=== PATIENT | female | born 1950 | race Caucasian/White ===

== ENCOUNTER → 2020-04-26 09:32 | Outpatient (BNVA) | payer MEDICARE, SELFPAY | PROVIDERS: Family Provider Family Medicine; PCP Family Medicine; Visit Provider Family Medicine | DX: I10 Essential (primary) hypertension (principal) | CPT/HCPCS: 80048; 85025 ==

== ENCOUNTER 2021-01-14 13:23 | Emergency (ER) | payer MEDICARE, SELFPAY ==
[2021-01-14 13:48] VITALS: BP 137/82; PULSE 90; RESP 16; TEMP 37.3; O2SAT 96; BMI 27.4
--- NOTE | 2021-01-14 13:50 | USCV_ITS ---
Isabel Auguste Age: 70 Gender: F : 1950 Exam Date: 01/14/2021 14:15 Ordering Phys: Dash Allison MD Technologist: Marce Rios Exam Location: [facility] Indication: PAIN RT CALF POST LAWN MOWING HISTORY: Pain rt calf below knee. PROCEDURES: The venous duplex Doppler examination of both lower extremities was performed in the standard fashion. The following venous structures were evaluated: common femoral vein, profunda vein, proximal portion of the greater saphenous vein, superficial femoral vein, and the popliteal vein. In addition, the posterior tibial and peroneal trunk were evaluated. Serial compression, augmentation maneuvers, and spectral Doppler flow evaluation were performed. FINDINGS: Normal 2-D Doppler and augmentation and compressibility throughout the lower extremity venous structures. Additional imaging through the proximal calf veins also reveals no thrombus. Limited evaluation of the greater saphenous vein is patent with no thrombus. CONCLUSIONS No DVT bilateral lower extremities. Dr. Joy Azevedo DO (Electronically Signed) Final Date: 14 January 2021 14:42 S
[2021-01-14 14:59] LABS: Basophils # 0.1 10^3/uL (0.0-0.1); Basophils % 0.9 %; Eosinophils # 0.1 10^3/uL (0.0-0.8); Eosinophils % 1.3 %; Hematocrit 44.2 % (37.0-47.0); Hemoglobin 14.7 g/dL (11.5-15.3); Lymphocytes # 1.6 10^3/uL (0.8-4.8); Mean Corpuscular HGB Conc 33.3 g/dL (30.0-36.0); Mean Corpuscular Hemoglobin 29.6 pg (28.0-34.0); Mean Corpuscular Volume 88.9 fL (81-99); Mean Platelet Volume 9.5 fL (7.4-10.4); Monocytes # 0.6 10^3/uL (0.2-0.9); Monocytes % 5.6 %; Neutrophils # 7.78 10^3/uL (1.8-7.7); Neutrophils % 75.8 %; Nucleated Red Blood Cells % 0 %; Platelet Count 410 10^3/cmm (130-400); Red Blood Count 4.97 10^6/uL (4.1-5.3); Red Cell Distribution Width 12.3 % (12.1-15.1); White Blood Count 10.3 10^3/uL (4.0-10.0)
[2021-01-14 15:24] LABS: Alanine Aminotransferase 13 U/L (0-33); Albumin Level 4.6 g/dL (3.5-5.2); Alkaline Phosphatase 92 IU/L (35-105); Anion Gap 17.3 (5-19); Aspartate Amino Transferase 19 U/L (0-32); Blood Urea Nitrogen 24 mg/dL (8-23); Calcium 9.7 mg/dL (8.5-10.5); Carbon Dioxide 28 mmol/L (22-29); Chloride 97 mmol/L (98-107); Globulin 3.3 g/dL (1.3-4.6); Glomerular Filtration Rate 54.8 mL/min (90-130); Glucose 121 mg/dL (65-115); Osmolality Calculated 293 mOsm/kg (285-295); Potassium 3.3 mmol/L (3.5-5.1); Sodium 139 mmol/L (136-145); Total Bilirubin 0.4 mg/dL (0.15-1.2); Total Protein 7.9 g/dL (6.6-8.7)
[2021-01-14 15:28] LABS: INR 0.95 (0.8-1.2)
[2021-01-14 15:29] LABS: Partial Thromboplastin Time 24.5 SECONDS (23.9-36.7)
[2021-01-14 15:31] LABS: D Dimer 0.36 ug/mIFEU (0-0.59)
[2021-01-14 17:00] VITALS: BP 153/94; PULSE 79; RESP 18; O2SAT 99
--- NOTE | 2021-01-14 17:20 | ED_ITS ---
HPI - Extremity Problem General: Chief complaint: Extremity Problem,Nontraumatic Stated complaint: POSS BLOOD CLOT IN RIGHT LEG Time Seen by Provider: 01/14/21 17:15 History of Present Illness: HPI Narrative: This patient is a 70-year-old female presents to the emergency department complaint of right leg pain. Patient was seen here by urgent care to rule out DVT. Patient states she started hurting a few days ago after getting off a lawnmower states she felt pain all the way down to her right calf. Patient states it got better over time but Sunday after sabianist unable to ambulate with her leg. Patient has a bit leg pain in a 90 degree angle is reluctant to straighten it. MD Complaint: extremity pain Associated symptoms: Deny chest pain, fever(s) or rash Review of Systems General: Reports: 10 or more systems reviewed and unremarkable except in HPI and below Const: Denies: fever(s), chills, body aches or fatigue Eyes: Denies: change in vision or blurry vision ENMT: Denies: throat pain, hoarseness or mouth pain Card: Denies: chest pain, palpitations, irregular heart rhythm, edema, swelling of feet/ankles or lightheadedness Resp: Denies: dyspnea, productive cough, non-productive cough, wheezing or pain on inspiration GI: Denies: abdominal pain, nausea or vomiting : Denies: flank pain, difficulty voiding, dysuria, urinary frequency, urinary urgency or urinary hesitancy Musc: Reports: extremity pain; Denies: neck pain, back pain, extremity swelling, joint pain, joint swelling, joint redness, joint warmth or limited range of motion Skin/Breast: Denies: rash, pruritus, erythema or skin tenderness Neuro: Denies: headache(s), numbness in extremities or weakness in extremities Psych: Denies: anxiety or depression PFS ED PFSH: Medical History Hypertension Social History Smoking and tobacco status: never smoked Alcohol intake: never Physical Exam Const: COMMON NORMALS: no acute distress, average body habitus, patient oriented x3, no limitations, healthy appearing, alert and well nourished HENMT: COMMON NORMALS: normocephalic, atraumatic, hearing grossly normal bilaterally, external ears normal, EAC's normal, TM's normal bilaterally, Normal external nose present, Normal nasal mucous membranes and turbinates present, moist oral mucous membranes, oropharynx normal, dentition normal and gingiva normal HEAD & SCALP: normocephalic and atraumatic NOSE: Normal external nose present and Normal nasal mucous membranes and turbinates present EXTERNAL EAR: Yes external ears normal EXTERNAL AUDITORY CANAL: EAC's normal TYMPANIC MEMBRANE: TM's normal bilaterally Neck/C-Spine: COMMON NORMALS: full ROM, no lymphadenopathy, supple, no meningeal signs, no JVD, Thyroid normal and No carotid bruits THYROID: T hyroid normal Chest: COMMONS NORMALS: normal inspection of the chest, normal palpation of entire chest wall, normal inspection of the breasts and normal palpation of the breasts Breast/axilla inspection: Yes normal inspection of the breasts BREAST/AXILLA PALPATION: Yes normal palpation of the breasts Resp: COMMON NORMALS: normal respiratory effort, No retractions, No use of accessory muscles, clear to auscultation bilaterally and percussion normal AUSCULTATION: clear to auscultation bilaterally PERCUSSION: percussion normal Cardio: COMMON NORMALS: no JVD, regular rate, regular rhythm, S1 normal heart sound present, S2 normal heart sound present, No gallops present (Cardio), No clicks present (Cardio), No murmurs present (Cardio), No rub (Cardio) and Peripheral pulses 2+ throughout RATE: regular rate RHYTHM: regular rhythm HEART SOUNDS: S1 normal heart sound present and S2 normal heart sound present PERIPHERAL PULSES: Peripheral pulses 2+ throughout GI: COMMON NORMALS: Normal to inspection, nondistended, normoactive bowel sounds present, Soft to palpation, non-tender, No hepatosplenomegaly present, no masses and no bruits PALPATION: Yes Soft to palpation and Yes No hepatosplenomegaly present Back/Pelvis: COMMON NORMALS: thoracic and lumbar spine normal to inspection, no thoracic nor lumbar tenderness, thoraco-lumbar ROM normal and straight leg raise negative bilaterally Extremity: COMMON NORMALS: normal to inspection, full ROM, capillary refill normal, no joint enlargement, no clubbing, cyanosis or edema, no calf tenderness and no pedal edema GENERAL: Yes calf tenderness (none) RIGHT LOWER EXTREMITY: Yes upper leg (Painful in Muscle refuses to Straighten leg) Right upper leg: Yes palpation Neuro: COMMON NORMALS: patient oriented x3 SENSORIUM/ORIENTATION: Yes alert MENINGEAL SIGNS: Yes no meningeal signs Course ED course: Negative evaluation in the emergency room for any acute findings. Ultrasound negative. Was able to straighten right leg with patient assistance. Patient has significant tightness into the medial side of the quadricep muscle. Pain to palpation. Patient be placed in a knee immobilizer. Patient should rest ice and heat. Keep elevated. Follow-up with orthopedics Dr. Theodore in 2 to 3 days if not improved patient states understanding Vital Signs: Vital signs: Vital Signs Temperature 99.1 F 01/14/21 13:48 Pulse Rate 90 01/14/21 13:48 Respiratory Rate 16 01/14/21 13:48 Blood Pressure 137/82 01/14/21 13:48 Pulse Oximetry 96 01/14/21 13:48 MDM - Extremity (Nontraumatic) MDM Narrative: Medical decision making narrative: Negative evaluation in the emergency room for any acute findings. Ultrasound negative. Was able to straighten right leg with patient assistance. Patient has significant tightness into the medial side of the quadricep muscle. Pain to palpation. Patient be placed in a knee immobilizer. Patient should rest ice and heat. Keep elevated. Follow-up with orthopedics Dr. Theodore in 2 to 3 days if not improved patient states understanding Medical Records: Attestation: I reviewed the patient's medical records. Lab Data: Attestation: I reviewed the patient's lab results. Labs: Lab Results 01/14/21 01/14/21 01/14/21 Range/Units 14:54 14:54 14:54 WBC 10.3 H (4.0-10.0) 10^3/ uL RBC 4.97 (4.1-5.3) 10^6/u L Hgb 14.7 (11.5-15.3) g/dL Hct 44.2 (37.0-47.0) % MCV 88.9 (81-99) fL MCH 29.6 (28.0-34.0) pg MCHC 33.3 (30.0-36.0) g/dL RDW 12.3 (12.1-15.1) % Plt Count 410 H (130-400) 10^3/c mm MPV 9.5 (7.4-10.4) fL Neut % (Auto) 75.8 % Lymph % (Auto) 16.0 % Hamblen % (Auto) 5.6 % Eos % (Auto) 1.3 % Baso % (Auto) 0.9 % Neut # (Auto) 7.78 H (1.8-7.7) 10^3/u L Lymph # (Auto) 1.6 (0.8-4.8) 10^3/u L Hamblen # (Auto) 0.6 (0.2-0.9) 10^3/u L Eos # (Auto) 0.1 (0.0-0.8) 10^3/u L Baso # (Auto) 0.1 (0.0-0.1) 10^3/u L Nucleated RBC % (a uto) 0 % Nucleated RBCs # 0.0 /100WBC PT 13.00 (12.1-14.9) SECO NDS INR 0.95 (0.8-1.2) APTT 24.5 (23.9-36.7) SECO NDS D-Dimer 0.36 (0-0.59) ug/mIFE U Sodium 139 (136-145) mmol/L Potassium 3.3 L (3.5-5.1) mmol/L Chloride 97 L (98-107) mmol/L Carbon Dioxide 28 (22-29) mmol/L Anion Gap 17.3 (5-19) BUN 24 H (8-23) mg/dL Creatinine 1.0 H (0.5-0.9) mg/dL GFR Calculation 54.8 L (90-130) mL/min Glucose 121 H (65-115) mg/dL Calculated Osmolal ity 293 (285-295) mOsm/k g Calcium 9.7 (8.5-10.5) mg/dL Total Bilirubin 0.4 (0.15-1.2) mg/dL AST 19 (0-32) U/L ALT 13 (0-33) U/L Alkaline Phosphata se 92 (35-105) IU/L Total Protein 7.9 (6.6-8.7) g/dL Albumin 4.6 (3.5-5.2) g/dL Globulin 3.3 (1.3-4.6) g/dL Imaging Data^: US Vascular: Attestation: I personally reviewed and interpreted this imaging study as follows: Radiologist's impression: FINDINGS: Normal 2-D Doppler and augmentation and compressibility throughout the lower extremity venous structures. Additional imaging through the proximal calf veins also reveals no thrombus. Limited evaluation of the greater saphenous vein is patent with no thrombus. CONCLUSIONS No DVT bilateral lower extremities. Discharge Plan Discharge Patient Disposition: Home Clinical Impression: Hamstring muscle strain Condition: Stable Prescriptions: New hydrocodone-acetaminophen 5-325 mg tablet 1 tab PO Q6H PRN (Reason: pain) Qty: 7 RF: 0 diclofenac sodium 75 mg tablet,delayed release (DR/EC) 75 mg PO BID PRN (Reason: pain) Qty: 20 RF: 0 No Action hydrochlorothiazide 25 mg tablet 25 mg PO DAILY Qty: 90 RF: 1 multivitamin Capsule 1 cap PO DAILY Qty: 90 RF: 1 amlodipine 2.5 mg tablet 2.5 mg PO BID Qty: 180 RF: 1 lisinopril 20 mg tablet 20 mg PO BID Qty: 180 RF: 1 loratadine 10 mg tablet 10 mg PO DAILY PRN (Reason: Allergy Symptoms) RF: 0 Discharge Orders: Discharge ED (Routine); Ordered 01/14/21 Ordered By: Dash Allison Referrals: Rakesh Khoury MD [Primary Care Provider] - Linh Rowley MD [Physician] - Discharge Diet: Advance as tolerated Discharge Activity: Increase activity as tolerated Patient Instructions: Opioid Safety Activity Restrictions/Additional Instructions: Rest ice elevate alternate ice with heat. Stretching exercises as instructed. Use knee immobilizer for straining of leg. Take medications as instructed. Coding Level of Care Code ED Handkerchief Sample Clerk for Abimbola Shah
[2021-01-14] MEDS: HYDROcodone-acetaminophen 5-325 mg Tablet 1 TAB PO (17:38)
[2021-01-14 17:59] VITALS: BP 161/86; PULSE 75; RESP 18; O2SAT 98
== END 2021-01-14 18:01 | disposition home or self-care (01) ==
PROVIDERS: Emergency Provider Emergency Medicine; PCP Family Medicine
DX: S76.311A Strain of muscle, fascia and tendon of the posterior muscle group at thigh level, right thigh, initial encounter (principal); X58.XXXA Exposure to other specified factors, initial encounter; I10 Essential (primary) hypertension; M79.604 Pain in right leg
CPT/HCPCS: 29530; 36415; 80053; 85025; 85378; 85610; 85730; 93970; 99283

== ENCOUNTER → 2022-04-17 16:12 | Outpatient (BNVA) | payer MEDICARE, SELFPAY | PROVIDERS: PCP Family Medicine; Visit Provider Family Medicine | DX: I10 Essential (primary) hypertension (principal); Z00.00 Encounter for general adult medical examination without abnormal findings; Z23 Encounter for immunization | CPT/HCPCS: 80053; 85025 ==

== ENCOUNTER → 2023-04-23 15:37 | Outpatient (BNVA) | payer MEDICARE, SELFPAY | PROVIDERS: PCP Family Medicine; Visit Provider Family Medicine | DX: I10 Essential (primary) hypertension (principal) | CPT/HCPCS: 80053; 85025 ==

== ENCOUNTER → 2023-08-07 10:15 | Outpatient (BNVA) | payer MEDICARE, SELFPAY | PROVIDERS: PCP Family Medicine; Visit Provider Family Medicine | DX: I10 Essential (primary) hypertension (principal); T78.40XA Allergy, unspecified, initial encounter | CPT/HCPCS: 80053; 85025 ==

== ENCOUNTER 2023-08-28 09:24 | Outpatient (CLI) | payer MEDICARE, SELFPAY ==
--- NOTE | 2023-08-28 09:30 | XRR_ITS ---
PROCEDURE INFORMATION: Exam: XR Chest Exam date and time: 08/28/2023 9:51 AM Age: 72 years old Clinical indication: Wheezing; Patient HX: Upper respiratory infection, chest congestion for 1 month, allergic reaction for 1 month; Additional info: Persistant wheezing/dyspnea p antibiotics TECHNIQUE: Imaging protocol: Radiologic exam of the chest. Views: 2 views. COMPARISON: No relevant prior studies available. FINDINGS: Lungs: There is an opacity in the left infrahilar region thought to project in the lingula.. This may be a patchy infiltrate or atelectasis however mass in this location can not be excluded. Right lung is clear There is a calcified granuloma in the medial posterior left upper lobe. Pleural spaces: Unremarkable. No pleural effusion. No pneumothorax. Heart/Mediastinum: The heart size is within normal limits. There are calcified hilar and mediastinal lymph nodes. Bones/joints: There are degenerative changes and kyphosis in the thoracic spine. There is thoracolumbar scoliosis. XR/XR chest 2V* [id number] IMPRESSION: 1. Opacity left lung base. Further evaluation recommended with chest CT 2. Degenerative changes and kyphoscoliosis spine. 3. Prior granulomatous disease
== END 2023-08-28 09:25 | disposition home or self-care (01) ==
LOC: RAD 09:25
PROVIDERS: PCP Family Medicine; Visit Provider Family Medicine
DX: J20.9 Acute bronchitis, unspecified (principal); J21.9 Acute bronchiolitis, unspecified
CPT/HCPCS: 71046; 86710; 87420; 87635

== ENCOUNTER 2023-09-03 12:49 | Outpatient (CLI) | payer MEDICARE, SELFPAY ==
--- NOTE | 2023-09-03 13:00 | CTR_ITS ---
PROCEDURE INFORMATION: Exam: CT Chest Without Contrast; Diagnostic Exam date and time: 09/03/2023 1:04 PM Age: 72 years old Clinical indication: Other: Cough; Patient HX: Acute bronchitis x 1 month, no issues in abdomen; Additional info: J20.9 - acute bronchitis, unspecified, request performed in next 24 to 48 hours TECHNIQUE: Imaging protocol: Diagnostic computed tomography of the chest without contrast. Radiation optimization: All CT scans at this facility use at least one of these dose optimization techniques: automated exposure control; mA and/or kV adjustment per patient size (includes targeted exams where dose is matched to clinical indication); or iterative reconstruction. COMPARISON: CR XR chest 2V* [id number] 08/28/2023 9:51 AM RADIATION DOSE METRICS: Total DLP (mGy-cm): 395.43 FINDINGS: Lungs: Left upper lobe granuloma. No focal consolidation. Bibasilar bronchial wall thickening and mucous plugging. Pleural spaces: Unremarkable. No pneumothorax. No pleural effusion. Heart: Unremarkable. No cardiomegaly. No pericardial effusion. Coronary arteries: Severe coronary artery calcification. Lymph nodes: Calcified left hilar lymph node, likely sequela of prior granulomatous disease. Vasculature: Unremarkable. No aortic aneurysm. Bones/joints: Moderate degenerative changes of the spine. Soft tissues: Unremarkable. PROCEDURE INFORMATION: Exam: CT Abdomen Without Contrast Exam date and time: 09/03/2023 1:04 PM Age: 72 years old Clinical indication: Other: Cough; Patient HX: Acute bronchitis x 1 month, no issues in abdomen; Additional info: J20.9 - acute bronchitis, unspecified, request performed in next 24 to 48 hours TECHNIQUE: Imaging protocol: Computed tomography of the abdomen without contrast. Radiation optimization: All CT scans at this facility use at least one of these dose optimization techniques: automated exposure control; mA and/or kV adjustment per patient size (includes targeted exams where dose is matched to clinical indication); or iterative reconstruction. COMPARISON: CR XR chest 2V* [id number] 08/28/2023 9:51 AM RADIATION DOSE METRICS: Total DLP (mGy-cm): 395.43 FINDINGS: Liver: No mass. Gallbladder and bile ducts: No calcified stones. No ductal dilation. Pancreas: No ductal dilation. Spleen: Multifocal splenic calcifications, likely sequela of prior granulomatous disease. Adrenal glands: Unremarkable. Kidneys and ureters: No hydronephrosis. Stomach and bowel: Visualized stomach and bowel are unremarkable. No obstruction. No mucosal thickening. Intraperitoneal space: Unremarkable. No free air. No significant fluid collection. Vasculature: Moderate atherosclerotic calcifications. Lymph nodes: Unremarkable. No enlarged lymph nodes. Bones/joints: Moderate degenerative changes of the spine. Soft tissues: Unremarkable. CT/CT chest abd [id number] IMPRESSION: Bibasilar bronchial wall thickening and mucous plugging, suggestive of bronchitis. No focal consolidation. IMPRESSION: No acute findings in the abdomen.
== END 2023-09-03 12:50 | disposition home or self-care (01) ==
LOC: RAD 12:50
PROVIDERS: PCP Family Medicine; Visit Provider Family Medicine
DX: J20.9 Acute bronchitis, unspecified (principal); J21.9 Acute bronchiolitis, unspecified; R91.8 Other nonspecific abnormal finding of lung field; J84.89 Other specified interstitial pulmonary diseases; D71 Functional disorders of polymorphonuclear neutrophils
CPT/HCPCS: 71250; 74150; 80053; 85025; 85651; 86140

== ENCOUNTER → 2023-10-01 14:14 | Outpatient (BNVA) | payer MEDICARE, SELFPAY | PROVIDERS: PCP Family Medicine; Visit Provider Family Medicine | DX: G70.9 Myoneural disorder, unspecified (principal); I10 Essential (primary) hypertension | CPT/HCPCS: 80053; 82085; 82550; 82607; 82652; 82746; 83735; 85025; 86140; 86160; 86162; 86235; 86255; 86376; 86431 ==

== ENCOUNTER → 2023-10-02 07:13 | Outpatient (BNVA) | payer MEDICARE, SELFPAY | PROVIDERS: PCP Family Medicine; Visit Provider Psychiatry & Neurology Neurology | DX: M33.13 Other dermatomyositis without myopathy (principal); G62.9 Polyneuropathy, unspecified; E87.6 Hypokalemia; I10 Essential (primary) hypertension | CPT/HCPCS: 99203 ==

== ENCOUNTER 2023-10-02 10:16 | Inpatient (IN) | payer MEDICARE, SELFPAY ==
[2023-10-02] VITALS (8 sets, daily range): BP systolic 137–173; BP diastolic 74–82; PULSE 82–91; RESP 16–20; TEMP 36.1–36.8; O2SAT 91–98; BMI 29.5
--- NOTE | 2023-10-02 10:26 | ECG_ITS ---
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 Measurements Intervals [place] Rate: 82 P: 0 NV: 0 QRS: -3 QRSD: 102 T: -1 QT: 393 QTc: 461 Interpretive Statements ATRIAL FIBRILLATION MINIMAL VOLTAGE CRITERIA FOR LVH, CONSIDER NORMAL VARIANT [MEETS CRITERIA IN ONE OF: R(aVL), S(V1), R(V5), R(V5/V6)+S(V1)] NONSPECIFIC ST & T-WAVE ABNORMALITY ABNORMAL RHYTHM ECG No previous ECG available for comparison Electronically Signed On 10-02-2023 11:45:47 CDT by Solomon Adams M.D. [id number]
--- NOTE | 2023-10-02 10:26 | XR_ITS ---
WS: [id number] Examination: XR chest 1V portable [id number] Reason for Exam: dyspnea Date: October 02, 2023 Comparison: August 28, 2023 Findings: The cardiomediastinal silhouette is not enlarged on this rotated film There is no pulmonary edema or pleural effusion. There is no dense consolidation. Impression: No acute lung process is identified.
[2023-10-02] MEDS: potassium chloride ER 20 mEq Tablet 40 MEQ PO (10:51)
[2023-10-02] MEDS: heparin 5,000 unit/mL INJ 1 mL 5000 UNIT SUBCUT ×2 (10:52→22:22)
--- NOTE | 2023-10-02 11:00 | USCV_ITS ---
Mild Isabel Auguste Age: 72 Gender: F : 1950 Exam Date: 10/02/2023 12:13 Ordering Phys: Constantin Boswell MD Technologist: Exam Location: [facility] Indication: weakness elevated ck BP: 123 / 73 HR: 83 Rhythm: Sinus Technical Quality: Adequate MEASUREMENTS (Male / Female) Normal Values 2D ECHO LVOT Diameter 2.1 cm LV Ejection Fraction MOD 2C 62.5 % LV Ejection Fraction 2C AL 62.6 % LA Diameter 3.8 cm M-MODE LA Ao Ratio MM 1.3 MV E Point Septal Separation 1.4 cm AV Cusp Separation MM 2.5 cm DOPPLER AV Peak Velocity 157.0 cm/s LVOT Peak Velocity 113.0 cm/s AV Area Cont Eq vti 2.6 cm squared AV Area Cont Eq pk 2.4 cm squared MV Peak Velocity 152.0 cm/s MV Area PHT 3.6 cm squared Mitral E to A Ratio 0.5 TR Peak Velocity 186.5 cm/s TR Peak Gradient 13.9 mmHg TR Mean Velocity 92.0 cm/s TR Mean Gradient 4.0 mmHg TR Velocity Time Integral 30.5 cm TV Peak E Velocity 104.0 cm/s Right Atrial Pressure 3.0 mmHg Pulmonary Artery Systolic Pressu 16.9 mmHg PV Peak Velocity 117.0 cm/s FINDINGS Left Ventricle Left ventricle is normal in size. LV systolic function is normal with EF of 60 to 65%. No regional wall motion abnormalities are seen. Grade 1 diastolic dysfunction Right Ventricle Normal in size and function Right Atrium Normal in size Left Atrium normal in size Mitral Valve Structurally normal mitral valve. Trace mitral regurgitation. Aortic Valve Aortic valve is thickened. No significant stenosis or regurgitation. Tricuspid Valve Mild tricuspid regurgitaiton. Insufficient TR jet to calculate RVSP Pulmonic Valve Not well visualized Pericardium Normal Aorta Normal in size IVC Appears to be normal CONCLUSIONS LV systolic function is normal with EF of 60-65% Grade 1 diastolic dysfunction Trace mitral regurgitation Mild tricuspid regurgitation No comparison studies are available. Solomon Adams MD (Electronically Signed) Final Date: 02 October 2023 15:41 S
--- NOTE | 2023-10-02 11:04 | P.HP_ITS ---
Providers/Chief Complaint 2 Admitting Physician: Constantin Boswell MD Primary Care Provider: Rakesh Khoury MD Chief Complaint: Generalized weakness History of Present Illness Isabel Auguste is a 72 year old female presenting from neurology clinic with severe weakness progressive over the last 4 months associated with rash, and some wheezing. She reports such severe weakness now that she can only ambulate a few steps, and has some difficulty even sitting up in bed for me. She reports she was diagnosed with pneumonia at some point and received some antibiotics as well as a short course of steroids. This did not seem to change her overall disease course. She denies any fevers, chest pain, vomiting, difficulty swallowing, shortness of breath, blood in stool, prior history of autoimmune disease. She had significant muscle aching, mainly proximally. She can still play the piano. Review of Systems 2 General: Reports: 10 or more systems reviewed and unremarkable except in HPI and below Card: Denies: chest pain Resp: Reports: wheezing; Denies: dyspnea GI: Denies: abdominal pain, nausea, vomiting or hematochezia Medications/Allergies Home Medications Medication Instructions Recorded Confirmed Last Taken Type multivitamin 1 cap PO DAILY #90 caps 04/29/20 10/02/23 01/14/21 Rx hydrochlorothiazide 25 mg tablet See Rx Instructions .Route 04/23/23 10/02/23 Unknown Rx .COMPLEX #90 tabs albuterol sulfate 90 mcg/actuation 2 puff inhalation Q6H PRN 08/28/23 10/02/23 Unknown Rx aerosol inhaler shortness of breath or wheezing #8.5 grams benzonatate 200 mg capsule 200 mg PO BID PRN cough #20 caps 08/28/23 10/02/23 Unknown Rx triamcinolone acetonide 0.1 % 1 applic topical TID PRN itching 09/10/23 10/02/23 Unknown Rx topical cream rash #80 grams amlodipine 5 mg tablet 5 mg PO BID #180 tabs 10/01/23 10/02/23 Unknown Rx Allergies Allergy/AdvReac Type Severity Reaction Status Date / Time No Known Allergies Allergy Verified 10/02/23 10:13 PFSH Acute 2 PFSH: Medical History (Updated 10/02/23 @ 11:56 by Constantin Boswell MD) GERD (gastroesophageal reflux disease) Hypertension Surgical History (Updated 10/02/23 @ 11:56 by Constantin Boswell MD) History of tubal ligation Social History Smoking and tobacco/nicotine status: never used tobacco/nicotine Alcohol intake: never Substance/Drug Use: never Other PFSH information: Supplemental [facility] Information: Reports family history of asthma Physical Exam 2 Narrative: General exam no distress, but obviously weak HEENT: Atraumatic and normocephalic. Oropharynx is clear. Neck is supple no lymphadenopathy thyromegaly Cardiovascular regular rate and rhythm without murmur Lungs a few faint wheezes Abdomen is soft nontender with positive bowel sounds. No obvious organomegaly exam is deferred Extremities no cyanosis clubbing edema, cap refill brisk Skin there is evidence of erythematous papules over her MCPs and PIPs, consistent with Gottron's papules. Some are also present on her elbows and knees, mainly her patella. Rash is also present on the face, centering mainly around the eyes consistent with heliotrope rash. Data 10/02/23 10:54 10/02/23 10:54 Other Labs: ESR 18 LFTs demonstrate a elevated AST at 270 and ALT of 103. Bilirubin and alk phos are normal Troponin is 306. Previous CK is 5485, repeat pending Aldolase previously ordered is pending as well as autoimmune workup A TSH is 2.19 Calcium, albumin normal Chest x-ray no infiltrate, reviewed by me CT chest and abdomen done September 02 demonstrated no obvious malignancy EKG done today demonstrates sinus rhythm, left axis deviation. Nonspecific ST-T wave changes are noted. I reviewed this personally. 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 Autoimmune workup has been initiated Check urinalysis Check echocardiogram Check hepatitis panel Will ultimately need PFTs as she may have a component of interstitial lung disease Muscle and skin biopsy ordered Initiate Solu-Medrol 500 mg IV every 12 hours. When clinical response is achieved will reduce to 1 mg/kg daily Consider IVIG if does not improve Neurology consult appreciated (2) Hypokalemia: Supplement potassium IV and p.o. Recheck tomorrow Hold hydrochlorothiazide Plan Wheezing. DuoNeb every 6 hours. Add budesonide. Hypertension. Monitor blood pressures. Restart Norvasc as needed Full code Heparin for DVT prophylaxis Attestations 2 Medical Necessity Statement*: Will need greater than 2 midnight stay secondary to severe weakness with inability to ambulate in this patient with severe initial presentation of polymyositis/dermatomyositis with need for IV steroids and possibly IVIG. Diagnoses Dermatomyositis M33.13 Hypokalemia E87.6 Time Spent (min) 64
[2023-10-02 11:09] LABS: Basophils # 0.1 10^3/uL (0.0-0.1); Basophils % 0.7 %; Eosinophils # 0.1 10^3/uL (0.0-0.8); Eosinophils % 0.7 %; Hematocrit 40.3 % (36-47); Mean Corpuscular HGB Conc 34.7 g/dL (30-55); Mean Corpuscular Hemoglobin 29.7 pg (27-33); Mean Corpuscular Volume 85.6 fl (85-98); Mean Platelet Volume 9.3 fL (7.4-10.4); Monocytes # 0.9 10^3/uL (0.2-0.9); Monocytes % 9.5 %; Neutrophils # 7.18 10^3/uL (1.8-7.7); Neutrophils % 77.8 %; Nucleated Red Blood Cells % 0 %; Platelet Count 342 10^3/cmm (157-399); Red Blood Count 4.71 10^6/uL (3.85-5.65); Red Cell Distribution Width 12.9 % (12.1-15.1); White Blood Count 9.22 10^3/uL (3.29-11.43)
[2023-10-02 11:18] LABS: Erythrocyte Sedimentation Rate 18 mm/hr (0-15)
[2023-10-02 11:28] LABS: Troponin T (5th) Once 306 ng/L (0-10)
[2023-10-02 11:33] LABS: Alanine Aminotransferase 103 U/L (0-33); Albumin Level 3.5 g/dL (3.5-5.2); Alkaline Phosphatase 87 U/L (35-105); Anion Gap 17.8 (5-19); Aspartate Amino Transferase 270 U/L (0-32); Blood Urea Nitrogen 19 mg/dL (8-23); C Reactive Protein 3.8 mg/L (0.0-4.9); Calcium 8.8 mg/dL (8.5-10.5); Carbon Dioxide 26 mmol/L (22-29); Chloride 97 mmol/L (98-107); Creatinine Clr Calc Pharmacy 54.8867; Glucose 105 mg/dL (65-115); Magnesium 1.7 mg/dL (1.7-2.3); Osmolality Calculated 289 mOsm/kg (285-295); Phosphorus 3.4 mg/dL (2.5-4.5); Sodium 138 mmol/L (136-145); Thyroid Stimulating Hormone 2.19 uIU/mL (0.27-4.20); Total Bilirubin 0.5 mg/dL (0.15-1.2); Total Protein 6.5 g/dL (6.6-8.7)
[2023-10-02 11:36] LABS: Potassium 2.8 mmol/L (3.5-5.1)
[2023-10-02] MEDS: acetaminophen 325 mg Tablet 650 MG PO (11:40)
[2023-10-02] MEDS: famotidine 20 mg/2 mL INJ IVP ×2 (11:51→22:46)
[2023-10-02] MEDS: methylPREDNISolone sod succ 125 mg/2 mL INJ 500 MG IVP ×2 (11:51→23:04)
[2023-10-02 11:54] LABS: Creatine Phosphokinase 6832 U/L (26-192)
[2023-10-02] MEDS: potassium phosphate (mEq K) 40 MEQ in sodium chloride 0.9% (100 ml) 100 ML 27.2699999999999996 MEQ IV (12:35)
[2023-10-02] MEDS: sodium chloride 0.9% 1,000 ML 100 ML IV ×2 (12:36→22:21)
[2023-10-02 12:38] LABS: Hepatitis A Antibody IgM Non-Reactive (Nonreactive); Hepatitis B Core IgM Non-Reactive (Nonreactive); Hepatitis B Surface Antigen Non-Reactive (Nonreactive); Hepatitis C Virus Antibody Non-Reactive (Nonreactive)
--- NOTE | 2023-10-02 12:55 | P.CONIM_ITS ---
Providers/Reason For Consult 2 Consulting Physician/Specialty*: Arvind Adams MD neurology and epilepsy Reason for Consult*: Dermatomyositis with severe weakness Attending Physician: Constantin Boswell MD Primary Care Provider: Rakesh Khoury MD History of Present Illness History of Present Illness Reason for consult: Proximal arm and leg weakness associated with facial rash and extremity rash since July 2023 assess for dermatomyositis History of present illness: Isabel Auguste is a 72 year old female with history of hypertension. Patient was in her usual state of health and doing well until mid July 2023. According to the patient, prior to her illness she was exercising and walking 1 mile twice a day. Patient stated that now she has difficulty ambulating and performing activities of daily living and can no longer play the piano. According to the patient, she developed a reddish papular rash around her mouth and around her face like a butterfly associated with facial puffiness and swelling. Then the patient stated she noticed papular rash and swelling on her chest and around her knuckles, elbows and knees followed by proximal weakness and pain in her arms and legs. Patient reports difficulty elevating her arms above her head and extending her arms (deltoids and triceps) as well as difficulty arising from a sitting position and walking secondary to severe proximal leg weakness. The patient reports severe pain in her muscles. I spoke with Dr. Khoury on 10/01/2023. Patient was scheduled for metabolic lab for CBC, comprehensive metabolic panel, C-reactive protein, rheumatoid factor, vitamin D, DONALD, Tomasa 1 antibody, Worthy antibody, [id number] DNA. The patient's lab was abnormal secondary to decreased serum potassium of 2.9 (normal equals 3.5-5.1), AST was elevated 248 (normal equals 0-32), ALT was elevated 90 (normal equals 0-33). CPK was elevated 5485 (normal equals 26-192). Rheumatoid factor and C-reactive protein were negative. Glucose was unremarkable at 115. Vitamin B12 was normal at 568. Folate was normal at 20. Magnesium was within normal limits. Albumin was within normal limits. Vitamin D, DONALD, Tomasa 1 antibody, Worthy antibody, and [id number] DNA were pending at the time of this dictation. On 09/03/2023 patient underwent sedimentation rate which was elevated 21 (normal equals 0-15). 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 The patient was informed that she will be scheduled for EMG/NCV today and will be admitted for IV steroids followed by oral steroids and referred to rheumatology and oncology to undergo an occult cancer workup since dermatomyositis can be associated with occult cancers. This was discussed with Dr. Interiano and the patient will be admitted to observation status for treatment since patient has severe weakness which can result in dysphagia and respiratory difficulty which can be life-threatening. Drug allergies: None Past medical history: Hypertension Right calf strain 2 years ago Bilateral cataract surgery Current medications: Albuterol sulfate 90 mcg per accusation 2 puffs every 6 hours as needed Norvasc 5 mg p.o. twice daily for hypertension Benzonatate 200 mg p.o. twice daily, as needed cough Hydrochlorothiazide Multivitamin 1 p.o. daily Pepcid AC 1 p.o. daily, as needed Ibuprofen 200 mg tablets 1 tablet 6 times a day for pain Habits: None Family history: Negative for autoimmune disease Review of Systems 2 General: Reports: 10 or more systems reviewed and unremarkable except in HPI and below Medications/Allergies Home Medications Medication Instructions Recorded Confirmed Last Taken Type multivitamin 1 cap PO DAILY #90 caps 04/29/20 10/02/23 01/14/21 Rx hydrochlorothiazide 25 mg tablet See Rx Instructions .Route 04/23/23 10/02/23 Unknown Rx .COMPLEX #90 tabs albuterol sulfate 90 mcg/actuation 2 puff inhalation Q6H PRN 08/28/23 10/02/23 Unknown Rx aerosol inhaler shortness of breath or wheezing #8.5 grams benzonatate 200 mg capsule 200 mg PO BID PRN cough #20 caps 08/28/23 10/02/23 Unknown Rx triamcinolone acetonide 0.1 % 1 applic topical TID PRN itching 09/10/23 10/02/23 Unknown Rx topical cream rash #80 grams amlodipine 5 mg tablet 5 mg PO BID #180 tabs 10/01/23 10/02/23 Unknown Rx Allergies Allergy/AdvReac Type Severity Reaction Status Date / Time No Known Allergies Allergy Verified 10/02/23 10:13 Current Medications Generic Name Dose Route Start Last Admin Trade Name Freq PRN Reason Stop Dose Admin Acetaminophen 650 mg 10/02/23 10:26 10/02/23 11:40 Acetaminophen 325 Mg Tablet PO 650 mg Q6H PRN Administration Mild/Mod Pain Or Temp >/= 101 Famotidine 20 mg 10/02/23 11:00 10/02/23 11:51 Famotidine 20 Mg/2 Ml Inj IVP 20 mg Q12H AMAYA Administration Heparin Sodium (Porcine) 5,000 unit 10/02/23 10:30 10/02/23 10:52 Heparin 5,000 Unit/Ml Inj 1 Ml SUBCUT 5,000 unit Q12H AMAYA Administration Potassium Phosphate 40 meq/ 108.5106 mls @ 27.273 mls/hr 10/02/23 12:45 10/02/23 12:35 Sodium Chloride IV 10/02/23 16:43 27.27 mls/hr ONCE ONE Administration Sodium Chloride 1,000 mls @ 100 mls/hr 10/02/23 12:00 10/02/23 12:36 Sodium Chloride 0.9% IV 100 mls/hr .Q10H AMAYA Administration Methylprednisolone Sodium Succinate 500 mg 10/02/23 11:15 10/02/23 11:51 Methylprednisolone Sod Succ 125 Mg/2 Ml Inj IVP 500 mg Q12H AMAYA Administration PFSH Acute 2 PFSH: Medical History (Updated 10/02/23 @ 12:59 by Arvind Adams MD) GERD (gastroesophageal reflux disease) Hypertension Surgical History (Updated 10/02/23 @ 11:56 by Constantin Boswell MD) History of tubal ligation Social History Smoking and tobacco/nicotine status: never used tobacco/nicotine Alcohol intake: never Substance/Drug Use: never Vitals/I&O/Wt Last Vital Signs Temp 97.0 F L 10/02/23 12:10 Pulse 87 10/02/23 12:10 Resp 18 10/02/23 12:10 BP 158/82 10/02/23 12:10 Pulse Ox 96 10/02/23 12:10 O2 Del Method Room Air 10/02/23 12:10 10/01/23 10/02/23 10/02/23 22:59 06:59 14:59 Intake Total 120 / 120 Balance 120 / 120 Weight last 48 hrs Weight 151 lb Physical Exam 2 Narrative: Blood pressure 155/90 heart rate 86 O2 saturation 98% on room air The patient is alert and oriented x 3. Speech fluent. Head normocephalic. Neck supple. Face revealed a red papular puffy butterfly rash on her face. Patient also displayed red papular rash on her chest, knuckles, elbows and knees. Cranial nerves II through XII intact. Pupils 4 mm round reactive to light and accommodation. Extraocular movements intact. There were signs of eye surgery bilaterally. TMs were intact without signs of infection. Motor testing in the upper extremities revealed 3/5 deltoids and triceps bilaterally. Other motor testing upper extremities was 5/5. Lower extremities revealed 3/5 hip flexion bilaterally, 4/5 hip extension bilaterally, 4/5 abduction and abduction of the hips bilaterally, leg extension 5/5, hamstrings 3/5 bilaterally. Foot inversion, eversion, plantarflexion and dorsiflexion 5/5 bilaterally. Deep tendon reflexes 2+ bilaterally. Plantar responses flexor bilaterally. There was no clonus. Sensory examination was intact to touch, pinprick and proprioception. Gait: The patient had difficulty arising from a sitting position without using her arms on her wheelchair. She was able to stand but was unsteady she was able to take 1-2 steps with assistance. Due to the patient's severe weakness, tandem walking, heel toe walking were not assessed. Throat clear. Lungs clear. Heart regular rhythm and rate. Extremities were negative for cyanosis but positive for papular rash on her knees, knuckles, and elbows and chest and face. Data 10/02/23 10:54 10/02/23 10:54 A&P Assessment and plan (1) Dermatomyositis: Impression: 1. Dermatomyositis 2. Proximal arm and leg weakness associated with pain, butterfly facial rash, chest rash, and rash on the knuckles, elbows and knees and elevated CPK of 5004 and 85 and elevated AST and ALT 245 and 90 respectively on labs obtained on 10/01/2023 clinically suggestive of dermatomyositis 2. Hypokalemia potassium 2.9 (on 10/01/2023) 3. Hypertension Plan: 1. In view of the patient's severe weakness recommend observation admission and start IV steroids methylprednisolone 500 mg IV every 12 hours. Will plan to start oral prednisone 30 mg p.o. twice daily on 10/03/2023 if patient remains stable 2. EMG/NCV on the lower extremities to assess for myositis (Done as outpatient on 10/02/2023) 3. Recommend obtaining skin and muscle biopsy to further assess for myositis 4. Recommend workup for occult cancer to include GI evaluation/colonoscopy, chest x-ray PA and lateral, CT of the chest to rule out occult lung cancer, echocardiogram, pulmonary function tests, lab for cardiac troponin 1, and mammogram to rule out occult breast cancer. Note: Chest x-ray and CT of the chest and abdomen were performed approximately [address] Khoury 5. Labs for serum protein electrophoresis, immunofixation, TSH, free T3, free T4 (ordered on outpatient lab 10/02/2023) 6. Recommend IV potassium to address hypokalemia as soon as possible (OBI) 6a. Agree with IV Pepcid or IV protonix for GI protection 7. Recommend referral to rheumatology for dermatomyositis 8. Consider IVIG for dermatomyositis if needed 9. Consider rituximab if needed for dermatomyositis if patient unable to tolerate oral steroids 10. Consider Plaquenil for rash if the rash persist 11. Recommend dietary consult to instruct patient is on foods to avoid such as fast foods and foods high in fructose corn syrup, artificial sweeteners, and decreasing wheat products such as bread and pasta to minimize flareups 12. Return to clinic for reevaluation 1 to 2 weeks after discharge from hospital (2) Hypokalemia: (3) Hypertension: Qualifiers: Hypertension type: primary hypertension Qualified Code(s): I10 - Essential (primary) hypertension (4) Weakness of both arms: (5) Weakness of both legs: Consult Attestations 2 Medical Necessity Statement: Patient evaluated by neurology for dermatomyositis and severe weakness and extremity/muscle pain and abnormal EMG/NCV study performed on 10/02/2023 consistent with dermatomyositis Coding Level of Care Code 18557 Diagnoses Dermatomyositis M33.13 Hypokalemia E87.6 Primary hypertension I10 Hypertension type: primary hypertension Weakness of both arms R29.898 Weakness of both legs R29.898
[2023-10-02] MEDS: ipratropium-albuterol 3 mL Neb INHALATION ×2 (13:54→19:52)
[2023-10-02 14:51] LABS: Blood Urine 3+ (Negative); Glucose Urine UA Norm (Normal); Ketones Urine Negative (Negative); Nitrate Urine Negative (Negative); Protein Urine 1+ (Negative); Specific Gravity, Urine 1.015 (1.005-1.030); Urine Appearance SL Hazy (CLEAR); Urine Color Yellow (Yellow); pH Urine 6.5 (5-7)
[2023-10-02 14:52] LABS: Bilirubin Urine Neg (Negative); Leukocyte Esterase Urine Trace (Negative); Urobilinogen Urine Norm (Negative)
[2023-10-02 14:56] LABS: Add Urine Culture? No; Bacteria Urine TRACE /hpf; Fine Granular Casts Urine 0-4 /lpf; Hyaline Casts Urine 0-4 /lpf; Mucus Urine 2+ /hpf; Transitional Epi Cells Urine 0-4 /hpf
[2023-10-02] MEDS: oxyCODONE-APAP 5-325 mg Tablet 1 TAB PO (15:59)
[2023-10-02] MEDS: ondansetron 2 mg/ML SDV 2 mL 4 MG IVP (18:37)
[2023-10-02] MEDS: budesonide 0.5 mg/2 mL Neb INHALATION (19:52)
[2023-10-03] VITALS (28 sets, daily range): BP systolic 134–177; BP diastolic 68–103; PULSE 76–103; RESP 9–34; TEMP 36.8–37.1; O2SAT 91–99; BMI 31.3
[2023-10-03] MEDS: ipratropium-albuterol 3 mL Neb INHALATION ×3 (02:50→20:37)
[2023-10-03 05:30] LABS: Basophils % 0.1 %; Hematocrit 38.6 % (36-47); Lymphocytes # 0.9 10^3/uL (0.8-4.8); Lymphocytes % 11.7 %; Mean Corpuscular HGB Conc 33.7 g/dL (30-55); Mean Corpuscular Hemoglobin 29.3 pg (27-33); Mean Corpuscular Volume 87.1 fl (85-98); Mean Platelet Volume 9.4 fL (7.4-10.4); Monocytes # 0.2 10^3/uL (0.2-0.9); Monocytes % 2.7 %; Neutrophils # 6.52 10^3/uL (1.8-7.7); Neutrophils % 85.1 %; Nucleated Red Blood Cells % 0 %; Platelet Count 315 10^3/cmm (157-399); Red Blood Count 4.43 10^6/uL (3.85-5.65); Red Cell Distribution Width 12.8 % (12.1-15.1); White Blood Count 7.67 10^3/uL (3.29-11.43)
[2023-10-03 05:49] LABS: Alanine Aminotransferase 86 U/L (0-33); Albumin Level 3.1 g/dL (3.5-5.2); Alkaline Phosphatase 73 U/L (35-105); Anion Gap 16.1 (5-19); Aspartate Amino Transferase 198 U/L (0-32); Blood Urea Nitrogen 20 mg/dL (8-23); Calcium 7.9 mg/dL (8.5-10.5); Carbon Dioxide 22 mmol/L (22-29); Chloride 102 mmol/L (98-107); Creatinine Clr Calc Pharmacy 56.5617; Globulin 2.8 g/dL (1.3-4.6); Glucose 173 mg/dL (65-115); Magnesium 1.7 mg/dL (1.7-2.3); Osmolality Calculated 291 mOsm/kg (285-295); Potassium 3.1 mmol/L (3.5-5.1); Sodium 137 mmol/L (136-145); Total Bilirubin 0.4 mg/dL (0.15-1.2); Total Protein 5.9 g/dL (6.6-8.7)
[2023-10-03 06:03] LABS: Creatine Phosphokinase 4806 U/L (26-192)
--- NOTE | 2023-10-03 06:21 | P.ANESASSM_ITS ---
Pre-Anesthetic Assessment Height/Weight: Height 1.52 m Weight 72.665 kg Temp Pulse Resp BP Pulse Ox O2 Del Method 98.4 F 93 17 151/74 91 Room Air 10/03/23 04:13 10/03/23 04:13 10/03/23 04:13 10/03/23 04:13 10/03/23 04:13 10/03/23 04:13 Preop Diagnosis: Polymiositis Operation Date: 10/03/23 07:00 Proposed Procedures p Muscle & Skin Biopsy(Not Applicable) - Claus Prado MD Familial anesthetic complications: None Last intake: > 8 hrs Social No alcohol and No tobacco CV/HEM Hypertension Musc/skel derkmatomyositis Anesthetic Plan ASA status: 3 Anesthesia: Choice Medications/Allergies Home Medications Medication Instructions Recorded Confirmed Last Taken Type albuterol sulfate 90 mcg/actuation 2 puff inhalation Q6H PRN 08/28/23 10/02/23 Unknown Rx aerosol inhaler shortness of breath or wheezing #8.5 grams acetaminophen 500 mg tablet 500 mg PO Q6H PRN Pain 10/02/23 10/02/23 Unknown History amlodipine 5 mg tablet See Rx Instructions .Route .COMPLEX 10/02/23 10/02/23 10/02/23 History hydrochlorothiazide 25 mg tablet 25 mg PO DAILY 10/02/23 10/02/23 10/02/23 History ibuprofen 200 mg tablet 400 mg PO Q6H PRN Pain 10/02/23 10/02/23 Unknown History multivitamin 1 tab PO QAM 10/02/23 10/02/23 10/02/23 History Allergies Allergy/AdvReac Type Severity Reaction Status Date / Time No Known Allergies Allergy Verified 10/02/23 10:13 Current Medications Generic Name Dose Route Start Last Admin Trade Name Freq PRN Reason Stop Dose Admin Acetaminophen 650 mg 10/02/23 10:26 10/02/23 11:40 Acetaminophen 325 Mg Tablet PO 650 mg Q6H PRN Administration Mild/Mod Pain Or Temp >/= 101 Albuterol/Ipratropium 3 ml 10/02/23 14:00 10/03/23 02:50 Ipratropium-Albuterol 3 Ml Neb INHALATION 3 ml Q6H.RESP AMAYA Administration Budesonide 0.5 mg 10/02/23 20:00 10/02/23 19:52 Budesonide 0.5 Mg/2 Ml Neb INHALATION 0.5 mg BID.RESPIRATORY AMAYA Administration Famotidine 20 mg 10/02/23 11:00 10/02/23 22:46 Famotidine 20 Mg/2 Ml Inj IVP 20 mg Q12H AMAYA Administration Heparin Sodium (Porcine) 5,000 unit 10/02/23 10:30 10/02/23 22:22 Heparin 5,000 Unit/Ml Inj 1 Ml SUBCUT 5,000 unit Q12H AMAYA Administration Sodium Chloride 1,000 mls @ 100 mls/hr 10/02/23 12:00 10/02/23 22:21 Sodium Chloride 0.9% IV 100 mls/hr .Q10H AMAYA Administration Methylprednisolone Sodium Succinate 500 mg 10/02/23 11:15 10/02/23 23:04 Methylprednisolone Sod Succ 125 Mg/2 Ml Inj IVP 500 mg Q12H AMAYA Administration Ondansetron HCl 4 mg 10/02/23 10:26 10/02/23 18:37 Ondansetron 2 Mg/Ml Sdv 2 Ml IVP 4 mg Q6H PRN Administration vomiting, or N/V if npo Oxycodone/Acetaminophen 1 tab 10/02/23 15:49 10/02/23 15:59 Oxycodone-Apap 5-325 Mg Tablet PO 1 tab Q6H PRN Administration MODERATE PAIN FORMERLY [facility] Anesthesia Medical History (Updated 10/02/23 @ 12:59 by Arvind Adams MD) GERD (gastroesophageal reflux disease) Hypertension Surgical History (Updated 10/02/23 @ 11:56 by Constantin Boswell MD) History of tubal ligation Social History Smoking and tobacco/nicotine status: never used tobacco/nicotine Alcohol intake: never Substance/Drug Use: never Supplemental PFS Information Reports family history of asthma Data Anesthesia 10/03/23 05:13 10/03/23 05:13 Short CBC 10/02/23 10/03/23 Range/Units 10:54 05:13 WBC 9.22 7.67 (3.29-11.43) 10^3/uL Hgb 14.00 13.00 (11.27-16.99) g/dL Hct 40.3 38.6 (36-47) % MCV 85.6 87.1 (85-98) fl Plt Count 342 315 (157-399) 10^3/cmm Neut % (Auto) 77.8 85.1 % Neut # (Auto) 7.18 6.52 (1.8-7.7) 10^3/uL BMP 10/02/23 10/03/23 10:54 05:13 Sodium 138 137 Potassium 2.8 L* 3.1 L Chloride 97 L 102 Carbon Dioxide 26 22 BUN 19 20 Creatinine 0.7 0.6 Glucose 105 173 H Calcium 8.8 7.9 L Cardiac Enzymes 10/02/23 10/03/23 Range/Units 10:54 05:13 Creatine Kinase 6832 H* 4806 H* (26-192) U/L Troponin T 5th Gen ng/L 306 H* (0-10) ng/L Liver Function 10/02/23 10/03/23 Range/Units 10:54 05:13 Total Bilirubin 0.5 0.4 (0.15-1.2) mg/dL AST 270 H 198 H (0-32) U/L ALT 103 H 86 H (0-33) U/L Alkaline Phosphatase 87 73 (35-105) U/L Albumin 3.5 3.1 L (3.5-5.2) g/dL Urine 10/02/23 Range/Units 14:34 Urine Color Yellow (Yellow) Urine Appearance Sl hazy A (CLEAR) Urine pH 6.5 (5-7) Ur Specific [place] 1.015 (1.005-1.030) Urine Protein 1+ H (Negative) Urine Glucose (UA) Norm (Normal) Urine Ketones Negative (Negative) Urine Nitrate Negative (Negative) Urine Bilirubin Neg (Negative) Ur Leukocyte Esterase Trace H (Negative) Urine RBC 5-10 H (0-2) /hpf Urine WBC 5-10 H (0-5) /hpf Coags 10/02/23 10:54 ESR 18 H C-Reactive Protein 3.8 Cardiac Studies: 2 No Data to Display
[2023-10-03] MEDS: scopolamine 1.5 Patch 1 PATCH TRANSDERMA (06:44)
[2023-10-03] MEDS: sodium chloride 0.9% 1,000 ML 30 ML IV (06:44)
[2023-10-03] MEDS: ondansetron 2 mg/ML SDV 2 mL 4 MG IVP ×2 (06:48→08:56)
--- NOTE | 2023-10-03 06:49 | P.HPUD_ITS ---
Surgery/Procedure H&P Update DATE OF PROCEDURE: October 03, 2023 DATE H&P PERFORMED: 10/02/23 H&P UPDATE INFORMATION: I have reviewed H&P completed within last 30 days, I have examined patient prior to procedure, No changes to prior documentation and H&P is in [facility] [place] on date indicated PREOP DIAGNOSIS: Polymiositis PLANNED PROCEDURE: Operation Date: 10/03/23 07:00 Proposed Procedures p Muscle & Skin Biopsy(Not Applicable) - Claus Prado MD
[2023-10-03] MEDS: ceFAZolin 2,000 MG in sodium chloride 0.9% (plus) 50 ML 100 MG IV (06:58)
[2023-10-03] MEDS: lidocaine-epi 1% 20 mL INJ INJECTION (07:29)
[2023-10-03] MEDS: BUPivacaine 0.25% INJ 10 mL INJECTION (07:30)
--- NOTE | 2023-10-03 08:03 | P.OP_ITS ---
Operative Report Date of procedure: October 03, 2023 Pre-op diagnosis: Suspected polymyositis Post-op diagnosis: Same Post-op findings: Cutaneous rash with the skin thickening in the left upper chest, normal anatomy in the left lower extremity at the level of the muscle biopsy site. Procedure done: A skin biopsy of the of the left upper chest, muscle biopsy left lower extremity Implants: None Specimens removed/disposition: Skin of the upper chest, vastus lateralis muscle Surgeon: Claus Prado MD Shot Blast Equipment Operator: DAVID OR Staff Estimated blood loss: 2 Complications: none Brief History: Is a 72-year-old female with clinical picture concerning for polymyositis who was consulted for possible ischemic muscle biopsy. After discussion of all risk and benefits as documented in the preop note we decided to proceed. Procedure: The patient was brought into the OR, she was placed in the supine position, general esthesia was given. The left upper chest were prepped and draped in the usual sterile fashion. Timeout was conducted. I then proceeded to obtain three 5 mm full-thickness punch biopsies of the skin on the left upper chest at the area of erythema and thickening. The specimens were passed to pathology. Hemostasis was verified. The wound was then closed using #3-0 Vicryl for the subcutaneous tissue and Dermabond for the skin. The drapes were then removed. The skin of the left lower extremity was prepped and draped in the usual sterile fashion. I then proceeded to make a 4 cm incision on an area overlying the left vastus lateralis muscle about 10 cm above from the knee. The incision was deepened until the fascia of the vastus lateralis was identified. The fascia of the vastus lateralis was then sharply opened with a knife and the opening was extended using a Metzenbaum scissor. The underlying muscle was then elevated using a Jacqiu clamp. I used #3-0 Vicryl to tie the muscle proximal and distal to the area that was going to be resected. I then proceeded with sharp excision of a 2 cm portion of the vastus lateralis muscle. The specimen was immediately sent to pathology in a wet Telfa. Hemostasis was obtained with electrocautery. The wound was irrigated with saline. I then proceeded to close the wound in layers using #0 Vicryl for the fascia of the vastus lateralis, #3-0 Vicryl for the subcutaneous tissue and #4 Monocryl for the skin. Local anesthesia was infiltrated in the wound. Dermabond was applied. At the end of the procedure all counts were correct, the patient tolerated well the procedure and was transferred to the PACU in stable condition.
--- NOTE | 2023-10-03 08:10 | PM.MISC ---
Miscellaneous Note Purpose of Documentation: Patient care update Note: Skin and muscle biopsy was done this morning without complications. Patient can shower starting the day after tomorrow, she can return to regular activity as tolerated. No additional restrictions from the surgical standpoint. Patient can follow-up with me in the clinic in 3 weeks.
[2023-10-03] MEDS: ondansetron 2 mg/ML SDV 2 mL 4 MG (09:15)
--- NOTE | 2023-10-03 09:20 | ANE.PACU2 ---
Inpatient post-anesthesia follow up: Airway intact: Yes Vital signs: Temperature 98.6 F Pulse Rate 103 Respiratory Rate 18 Blood Pressure 135/78 Pulse Oximetry 96 Oxygen Delivery Me thod Room Air Oxygen Flow Rate 8 Fraction of Inspir ed Oxygen Hydration adequate: Yes Nausea and vomiting: No Pain level: 1 Mental status: Baseline
[2023-10-03] MEDS: potassium chloride oral liq 20 mEq/15 mL UDC 40 MEQ PO ×2 (09:44→14:10)
[2023-10-03] MEDS: heparin 5,000 unit/mL INJ 1 mL 5000 UNIT SUBCUT ×2 (09:44→22:37)
[2023-10-03] MEDS: metoclopramide 5 mg/mL SDV 2 mL 10 MG IVP (09:44)
--- NOTE | 2023-10-03 10:47 | P.PN_ITS ---
Subjective 2 Subjective: Isabel still feels weak but perhaps a little bit better today. She was able to ambulate some with a walker with help. Medications: Reviewed: Yes Vitals/I&O/Wt Last Vital Signs Temp 98.7 F 10/03/23 09:20 Pulse 80 10/03/23 09:20 Resp 20 H 10/03/23 09:20 BP 146/86 10/03/23 09:20 Pulse Ox 98 10/03/23 09:20 O2 Del Method Room Air 10/03/23 09:20 O2 Flow Rate 8 10/03/23 08:20 10/02/23 10/03/23 10/03/23 22:59 06:59 14:59 Intake Total 1563.5106 / 1683.5106 1184.5 / 1184.5 Output Total 150 / 550 Balance 1413.5106 / 1133.5106 1183.5 / 1183.5 Weight last 48 hrs Weight 72.665 kg Weight 68.492 kg Physical Exam 2 Narrative: General exam no distress, but obviously weak Neck is supple no lymphadenopathy thyromegaly Cardiovascular regular rate and rhythm without murmur Lungs a few faint wheezes Abdomen is soft nontender with positive bowel sounds. No obvious organomegaly Extremities no cyanosis clubbing edema, cap refill brisk Skin no changes, rash still present Data 10/03/23 05:13 10/03/23 05:13 A&P Assessment and plan (1) Dermatomyositis: Patient has a clinical diagnosis of dermatomyositis/polymyositis with proximal muscle weakness and pain, elevated CK, Gutron's papules, heliotrope rash. Autoimmune workup has been initiated Urinalysis not revealing Echo demonstrates preserved EF Hepatitis panel negative Will ultimately need PFTs as she may have a component of interstitial lung disease Muscle and skin biopsy performed this morning Initiate Solu-Medrol 500 mg IV every 12 hours. When clinical response is achieved will reduce to 1 mg/kg daily Consider IVIG if does not improve Neurology consult appreciated High-dose IV steroids requires daily lab with close monitoring of sugar and other medical parameters, increasing complexity. (2) Hypokalemia: Supplement again today p.o. Hold hydrochlorothiazide Plan Wheezing. DuoNeb every 6 hours. Add budesonide. Hypertension. Monitor blood pressures. Restart Norvasc as needed Full code Heparin for DVT prophylaxis May need nursing facility placement for rehabilitation. Discharge planning will see. Attestations 2 Medical Necessity Statement*: Needs continued hospital stay for IV steroids secondary to polymyositis/dermatomyositis pending improvement. Diagnoses Dermatomyositis M33.13 Hypokalemia E87.6 Time Spent (min) 24
--- NOTE | 2023-10-03 11:02 | P.PN_ITS ---
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 Patient was in her usual state of health and doing well until mid July 2023. According to the patient, prior to her illness she was exercising and walking 1 mile twice a day. Patient stated that now she has difficulty ambulating and performing activities of daily living and can no longer play the piano. According to the patient, she developed a reddish papular rash around her mouth and around her face like a butterfly associated with facial puffiness and swelling. Then the patient stated she noticed papular rash and swelling on her chest and around her knuckles, elbows and knees followed by proximal weakness and pain in her arms and legs. Patient reports difficulty elevating her arms above her head and extending her arms (deltoids and triceps) as well as difficulty arising from a sitting position and walking secondary to severe proximal leg weakness. The patient reports severe pain in her muscles. I spoke with Dr. Khoury on 10/01/2023. Patient was scheduled for metabolic lab for CBC, comprehensive metabolic panel, C-reactive protein, rheumatoid factor, vitamin D, DONALD, Tomasa 1 antibody, Worthy antibody, zuqt-spjdsz-xcjflxxb DNA. The patient's lab was abnormal secondary to decreased serum potassium of 2.9 (normal equals 3.5-5.1), AST was elevated 248 (normal equals 0-32), ALT was elevated 90 (normal equals 0-33). CPK was elevated 5485 (normal equals 26-192). Rheumatoid factor and C-reactive protein were negative. Glucose was unremarkable at 115. Vitamin B12 was normal at 568. Folate was normal at 20. Magnesium was within normal limits. Albumin was within normal limits. Vitamin D, DONALD, Tomasa 1 antibody, Worthy antibody, and iiaf-estzov-giqesmed DNA were pending at the time of this dictation. On 09/03/2023 patient underwent sedimentation rate which was elevated 21 (normal equals 0-15). 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 The patient was informed that she will be scheduled for EMG/NCV which was performed on 10/02/2023 and was consistent with myositis process. The patient was admitted on 10/02/2023 to undergo IV steroids followed by oral steroids once the patient is stable and will be referred to rheumatology and oncology to undergo an occult cancer workup since dermatomyositis can be associated with occult cancers. This was discussed with Dr. Interiano and the patient was admitted for treatment since the patient has severe weakness which can result in dysphagia and respiratory difficulty which can be life- threatening. The patient stated she is feeling better on 10/03/2023 after starting IV steroids on 10/02/2023. The patient still has weakness on exam clinically but slightly improved. Her rash is slightly improved and she reported less pain. I spoke with Dr. Boswell today via phone with plans to continue IV steroids for 3 days and then consider oral prednisone 30 mg p.o. twice daily. There also plans to possibly transfer patient to assisted living secondary to weakness since patient reports she would be unable to care for herself at home. The patient also underwent muscle and skin biopsy on 10/03/2023. Results pending at the time of this dictation. Drug allergies: None Past medical history: Hypertension Right calf strain 2 years ago Bilateral cataract surgery Current medications: IV methylprednisolone 500 mg every 12 hours for dermatomyositis and severe weakness Reglan 10 mg IV every 6 hours as needed Albuterol sulfate 90 mcg per accusation 2 puffs every 6 hours as needed Norvasc 5 mg p.o. twice daily for hypertension Benzonatate 200 mg p.o. twice daily, as needed cough Hydrochlorothiazide Multivitamin 1 p.o. daily Past medications: Pepcid AC 1 p.o. daily, as needed Ibuprofen 200 mg tablets 1 tablet 6 times a day for pain Habits: None Family history: Negative for autoimmune disease Review of Systems General: Reports: 10 or mor e systems reviewed and unremarkable except in HPI and below Vitals/I&O/Wt Last Vital Signs Temp 98.7 F 10/03/23 09:20 Pulse 80 10/03/23 09:20 Resp 20 H 10/03/23 09:20 BP 146/86 10/03/23 09:20 Pulse Ox 98 10/03/23 09:20 O2 Del Method Room Air 10/03/23 09:20 O2 Flow Rate 8 10/03/23 08:20 10/02/23 10/03/23 10/03/23 22:59 06:59 14:59 Intake Total 1563.5106 / 1683.5106 1184.5 / 1184.5 Output Total 150 / 550 Balance 1413.5106 / 1133.5106 1183.5 / 1183.5 Weight last 48 hrs Weight 160 lb 3.2 oz Weight 151 lb Physical Exam 2 Narrative: The patient is alert and oriented x 3. Speech fluent. Head normocephalic. Neck supple. Face revealed a red papular puffy butterfly rash on her face. Patient also displayed red papular rash on her chest, knuckles, elbows and knees. Cranial nerves II through XII intact. Pupils 4 mm round reactive to light and accommodation. Extraocular movements intact. There were signs of eye surgery bilaterally. TMs were intact without signs of infection. Motor testing in the upper extremities revealed 3/5 deltoids and triceps bilaterally. Other motor testing upper extremities was 5/5. Lower extremities revealed 3/5 hip flexion bilaterally, 4/5 hip extension bilaterally, 4/5 abduction and abduction of the hips bilaterally, leg extension 5/5, hamstrings 3/5 bilaterally. Foot inversion, eversion, plantarflexion and dorsiflexion 5/5 bilaterally. Deep tendon reflexes 2+ bilaterally. Plantar responses flexor bilaterally. There was no clonus. Sensory examination was intact to touch, pinprick and proprioception. Gait: The patient had difficulty arising from a sitting position without using her arms on her wheelchair. She was able to stand but was unsteady she was able to take 1-2 steps with assistance. Due to the patient's severe weakness, tandem walking, heel toe walking were not assessed. Throat clear. Lungs clear. Heart regular rhythm and rate. Extremities were negative for cyanosis but positive for papular rash on her knees, knuckles, and elbows and chest and face. Data 10/03/23 05:13 10/03/23 05:13 A&P Assessment and plan (1) Dermatomyositis: Impression: 1. Dermatomyositis 2. Proximal arm and leg weakness associated with pain, butterfly facial rash, chest rash, and rash on the knuckles, elbows and knees and elevated CPK of 5004 and 85 and elevated AST and ALT 245 and 90 respectively on labs obtained on 10/01/2023 clinically suggestive of dermatomyositis 2. Hypokalemia potassium 2.9 (on 10/01/2023) 3. Hypertension Plan: 1. Continue IV steroids methylprednisolone 500 mg IV every 12 hours. Will plan to start oral prednisone 30 mg p.o. twice once regimen of IV methylprednisolone has been completed 2. Follow-up results of skin and muscle biopsy to further assess for myositis performed on 10/03/2023 4. Recommend workup for occult gastrointestinal cancer and mammogram to rule out occult breast cancer. Note: Chest x-ray and CT of the chest and abdomen were performed approximately [address] Khoury 5. Obtain pulmonary function tests 6. Follow-up labs for serum protein electrophoresis, immunofixation, TSH, free T3, free T4 (ordered on outpatient lab 10/02/2023) 7. Recommend referral to rheumatology for dermatomyositis 8. Consider IVIG for dermatomyositis if needed 9. Consider rituximab if needed for dermatomyositis if patient unable to tolerate oral steroids 10. Consider Plaquenil for rash if the rash persist 11. Recommend dietary consult to instruct patient is on foods to avoid such as fast foods and foods high in fructose corn syrup, artificial sweeteners, and decreasing wheat products such as bread and pasta to minimize flareups 12. Return to clinic for reevaluation 1 to 2 weeks after discharge from hospital 13. Agree with plans to transfer patient to assisted living facility on discharge if needed 14. Recommend occupational and physical therapy consults (2) Weakness of both arms: (3) Weakness of both legs: Attestations 2 Medical Necessity Statement*: The patient was evaluated by neurology for dermatomyositis with severe arm and leg weakness and pain Coding Level of Care Code 26493 Diagnoses Dermatomyositis M33.13 Weakness of both arms R29.898 Weakness of both legs R29.898
[2023-10-03] MEDS: famotidine 20 mg/2 mL INJ IVP ×2 (11:18→22:38)
[2023-10-03] MEDS: methylPREDNISolone sod succ 125 mg/2 mL INJ 500 MG IVP ×2 (11:19→22:37)
[2023-10-03] MEDS: sodium chloride 0.9% 1,000 ML 100 ML IV ×2 (15:00→23:39)
[2023-10-03] MEDS: budesonide 0.5 mg/2 mL Neb INHALATION (20:37)
[2023-10-03] MEDS: acetaminophen 325 mg Tablet 650 MG PO (23:37)
[2023-10-04] VITALS (11 sets, daily range): BP systolic 123–155; BP diastolic 64–74; PULSE 78–101; RESP 16–18; TEMP 36.7–37.6; O2SAT 90–99
[2023-10-04 01:29] LABS: PROTEIN, TOTAL 5.8 g/dL (6.1-8.1)
[2023-10-04] MEDS: ipratropium-albuterol 3 mL Neb INHALATION ×4 (03:11→20:15)
[2023-10-04 05:03] LABS: Basophils % 0.1 %; Hematocrit 38.3 % (36-47); Lymphocytes # 1.1 10^3/uL (0.8-4.8); Lymphocytes % 5.8 %; Mean Corpuscular HGB Conc 32.1 g/dL (30-55); Mean Corpuscular Hemoglobin 29.6 pg (27-33); Mean Corpuscular Volume 92.1 fl (85-98); Mean Platelet Volume 9.6 fL (7.4-10.4); Monocytes % 5.2 %; Neutrophils # 16.35 10^3/uL (1.8-7.7); Neutrophils % 88.2 %; Nucleated Red Blood Cells % 0 %; Platelet Count 313 10^3/cmm (157-399); Red Blood Count 4.16 10^6/uL (3.85-5.65); Red Cell Distribution Width 13.5 % (12.1-15.1); White Blood Count 18.53 10^3/uL (3.29-11.43)
[2023-10-04 05:22] LABS: Alanine Aminotransferase 81 U/L (0-33); Albumin Level 3.2 g/dL (3.5-5.2); Alkaline Phosphatase 65 U/L (35-105); Anion Gap 16.8 (5-19); Aspartate Amino Transferase 195 U/L (0-32); Blood Urea Nitrogen 21 mg/dL (8-23); Calcium 7.7 mg/dL (8.5-10.5); Carbon Dioxide 21 mmol/L (22-29); Chloride 106 mmol/L (98-107); Creatinine Clr Calc Pharmacy 58.2732; Globulin 2.5 g/dL (1.3-4.6); Glucose 174 mg/dL (65-115); Osmolality Calculated 297 mOsm/kg (285-295); Potassium 3.8 mmol/L (3.5-5.1); Sodium 140 mmol/L (136-145); Total Bilirubin 0.4 mg/dL (0.15-1.2); Total Protein 5.7 g/dL (6.6-8.7)
[2023-10-04 05:39] LABS: Creatine Phosphokinase 4456 U/L (26-192)
[2023-10-04] MEDS: budesonide 0.5 mg/2 mL Neb INHALATION ×2 (08:32→20:15)
--- NOTE | 2023-10-04 09:21 | P.PN_ITS ---
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 Patient was in her usual state of health and doing well until mid July 2023. According to the patient, prior to her illness she was exercising and walking 1 mile twice a day. Patient stated that now she has difficulty ambulating and performing activities of daily living and can no longer play the piano. According to the patient, she developed a reddish papular rash around her mouth and around her face like a butterfly associated with facial puffiness and swelling. Then the patient stated she noticed papular rash and swelling on her chest and around her knuckles, elbows and knees followed by proximal weakness and pain in her arms and legs. Patient reports difficulty elevating her arms above her head and extending her arms (deltoids and triceps) as well as difficulty arising from a sitting position and walking secondary to severe proximal leg weakness. The patient reports severe pain in her muscles. I spoke with Dr. Khoury on 10/01/2023. Patient was scheduled for metabolic lab for CBC, comprehensive metabolic panel, C-reactive protein, rheumatoid factor, vitamin D, DONALD, Tomasa 1 antibody, Worthy antibody, upwz-gjraej-iksszxtv DNA. The patient's lab was abnormal secondary to decreased serum potassium of 2.9 (normal equals 3.5-5.1), AST was elevated 248 (normal equals 0-32), ALT was elevated 90 (normal equals 0-33). CPK was elevated 5485 (normal equals 26-192). Rheumatoid factor and C-reactive protein were negative. Glucose was unremarkable at 115. Vitamin B12 was normal at 568. Folate was normal at 20. Magnesium was within normal limits. Albumin was within normal limits. Vitamin D, DONALD, Tomasa 1 antibody, Worthy antibody, and wuew-ontqop-csxafdds DNA were pending at the time of this dictation. On 09/03/2023 patient underwent sedimentation rate which was elevated 21 (normal equals 0-15). 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 The patient was informed that she will be scheduled for EMG/NCV which was performed on 10/02/2023 and was consistent with myositis process. The patient was admitted on 10/02/2023 to undergo IV steroids followed by oral steroids once the patient is stable and will be referred to rheumatology and oncology to undergo an occult cancer workup since dermatomyositis can be associated with occult cancers. This was discussed with Dr. Interiano and the patient was admitted for treatment since the patient has severe weakness which can result in dysphagia and respiratory difficulty which can be life- threatening. The patient stated she is feeling better on 10/04/2023 after starting IV steroids on 10/02/2023. The patient still has weakness on exam clinically but slightly improved. Her rash is slightly improved and she reported less pain. The patient denied any side effects from the intravenous steroids. The patient underwent skin and muscle biopsy on 10/03/2023. Results pending. Drug allergies: None Past medical history: Hypertension Right calf strain 2 years ago Bilateral cataract surgery Current medications: IV methylprednisolone 500 mg every 12 hours for dermatomyositis and severe weakness Reglan 10 mg IV every 6 hours as needed Albuterol sulfate 90 mcg per accusation 2 puffs every 6 hours as needed Norvasc 5 mg p.o. twice daily for hypertension Benzonatate 200 mg p.o. twice daily, as needed cough Hydrochlorothiazide Multivitamin 1 p.o. daily Past medications: Pepcid AC 1 p.o. daily, as needed Ibuprofen 200 mg tablets 1 tablet 6 times a day for pain Habits: None Family history: Negative for autoimmune disease Review of Systems General: Reports: 10 or mor e systems reviewed and unremarkable except in HPI and below Vitals/I&O/Wt Last Vital Signs Temp 98.1 F 10/04/23 08:00 Pulse 86 10/04/23 08:32 Resp 16 10/04/23 08:32 BP 153/67 10/04/23 08:00 Pulse Ox 92 10/04/23 08:32 O2 Del Method Room Air 10/04/23 08:32 O2 Flow Rate 1 10/04/23 03:15 10/03/23 10/04/23 10/04/23 22:59 06:59 14:59 Intake Total 360 / 1904.5 1105 / 3009.5 Balance 360 / 1903.5 1105 / 3008.5 Weight last 48 hrs Weight 169 lb 9.6 oz Weight 160 lb 3.2 oz Weight 151 lb Physical Exam 2 Narrative: The patient is alert and oriented x 3. Speech fluent. Head normocephalic. Neck supple. Face revealed a red papular puffy butterfly rash on her face. Patient also displayed red papular rash on her chest, knuckles, elbows and knees. Cranial nerves II through XII intact. Pupils 4 mm round reactive to light and accommodation. Extraocular movements intact. There were signs of eye surgery bilaterally. TMs were intact without signs of infection. Motor testing in the upper extremities revealed 3/5 deltoids and triceps bilaterally. Other motor testing upper extremities was 5/5. Lower extremities revealed 3/5 hip flexion bilaterally, 4/5 hip extension bilaterally, 4/5 abduction and abduction of the hips bilaterally, leg extension 5/5, hamstrings 3/5 bilaterally. Foot inversion, eversion, plantarflexion and dorsiflexion 5/5 bilaterally. Deep tendon reflexes 2+ bilaterally. Plantar responses flexor bilaterally. There was no clonus. Sensory examination was intact to touch, pinprick and proprioception. Gait: The patient had difficulty arising from a sitting position without using her arms on her wheelchair. She was able to stand but was unsteady she was able to take 1-2 steps with assistance. Due to the patient's severe weakness, tandem walking, heel toe walking were not assessed. Throat clear. Lungs clear. Heart regular rhythm and rate. Extremities were negative for cyanosis but positive for papular rash on her knees, knuckles, and elbows and chest and face. Data 10/04/23 04:26 10/04/23 04:26 A&P Assessment and plan (1) Dermatomyositis: Impression: 1. Dermatomyositis 2. Proximal arm and leg weakness associated with pain, butterfly facial rash, chest rash, and rash on the knuckles, elbows and knees and elevated CPK of 5004 and 85 and elevated AST and ALT 245 and 90 respectively on labs obtained on 10/01/2023 clinically suggestive of dermatomyositis 2. Hypokalemia potassium 2.9 (on 10/01/2023) 3. Hypertension Plan: 1. Continue IV steroids methylprednisolone 500 mg IV every 12 hours. Will plan to start oral prednisone 30 mg p.o. twice once regimen of IV methylprednisolone has been completed 2. Follow-up results of skin and muscle biopsy to further assess for myositis performed on 10/03/2023 4. Recommend workup for occult gastrointestinal cancer and mammogram to rule out occult breast cancer. Note: Chest x-ray and CT of the chest and abdomen were performed approximately [address] Khoury 5. Obtain pulmonary function tests 6. Follow-up labs for serum protein electrophoresis, immunofixation, TSH, free T3, free T4 (ordered on outpatient lab 10/02/2023) 7. Recommend referral to rheumatology for dermatomyositis 8. Consider IVIG for dermatomyositis if needed 9. Consider rituximab if needed for dermatomyositis if patient unable to tolerate oral steroids 10. Consider Plaquenil for rash if the rash persist 11. Recommend dietary consult to instruct patient is on foods to avoid such as fast foods and foods high in fructose corn syrup, artificial sweeteners, and decreasing wheat products such as bread and pasta to minimize flareups 12. Return to clinic for reevaluation 1 to 2 weeks after discharge from hospital 13. Agree with plans to transfer patient to assisted living facility on discharge if needed 14. Recommend occupational and physical therapy consults (2) Weakness of both arms: (3) Weakness of both legs: Attestations 2 Medical Necessity Statement*: The patient was evaluated by neurology for dermatomyositis with severe weakness in the upper and lower extremities Coding Level of Care Code 61754 Diagnoses Dermatomyositis M33.13 Weakness of both arms R29.898 Weakness of both legs R29.898
--- NOTE | 2023-10-04 09:38 | P.PN_ITS ---
Documented by User: FRANNY Benoit STDILA 10/04/23 09:54 Subjective 2 Subjective: Patient sitting up in chair this morning on room air. Mrs. Auguste states she is feeling more energetic, able to walk further distances and sit up for longer. Plans to work with physical therapy again today. Medications: Reviewed: Yes Vitals/I&O/Wt Last Vital Signs Temp 98.1 F 10/04/23 08:00 Pulse 86 10/04/23 08:32 Resp 16 10/04/23 08:32 BP 153/67 10/04/23 08:00 Pulse Ox 92 10/04/23 08:32 O2 Del Method Room Air 10/04/23 08:32 O2 Flow Rate 1 10/04/23 03:15 10/03/23 10/04/23 10/04/23 22:59 06:59 14:59 Intake Total 360 / 1904.5 1105 / 3009.5 Balance 360 / 1903.5 1105 / 3008.5 Weight last 48 hrs Weight 169 lb 9.6 oz Weight 160 lb 3.2 oz Weight 151 lb Physical Exam 2 Narrative: General exam white female, no apparent distress. Neck is supple no lymphadenopathy thyromegaly Cardiovascular regular rate and rhythm without murmur Lungs a few faint wheezes, on room air. Abdomen is soft non-tender with positive bowel sounds. No obvious organomegaly Extremities no cyanosis clubbing edema, cap refill brisk Skin no changes, rash still present Data 10/04/23 04:26 10/04/23 04:26 A&P Assessment and plan (1) Dermatomyositis: Patient has a clinical diagnosis of dermatomyositis/polymyositis with proximal muscle weakness and pain, elevated CK, Gutron's papules, heliotrope rash. Autoimmune workup has been initiated Urinalysis not revealing Echo 10/02/23 demonstrates preserved EF Hepatitis panel negative Will ultimately need PFTs as she may have a component of interstitial lung disease Muscle and skin biopsy performed 10/03/23, pending. Continue Solu-Medrol 500 mg IV every 12 hours. When clinical response is achieved will reduce to 1 mg/kg daily Consider IVIG if does not improve. Neurology consult appreciated High-dose IV steroids requires daily lab with close monitoring of sugar and other medical parameters, increasing complexity. (2) Hypokalemia: Supplement again today p.o. Hold hydrochlorothiazide Plan Continue DuoNeb every 6 hours. Continue budesonide. Hypertension. Monitor blood pressures. Continue Norvasc. Full code Heparin for DVT prophylaxis May need nursing facility placement for rehabilitation. Discharge planning will see. Coding Level of Care Code 32728 Diagnoses Dermatomyositis M33.13 Hypokalemia E87.6 Time Spent (min) 24 Documented by User: Constantin Boswell MD 10/04/23 10:26 Data 10/04/23 04:26 10/04/23 04:26 A&P Assessment and plan (1) Dermatomyositis: Patient has a clinical diagnosis of dermatomyositis/polymyositis with proximal muscle weakness and pain, elevated CK, Gutron's papules, heliotrope rash. Autoimmune workup has been initiated Urinalysis not revealing Echo 10/02/23 demonstrates preserved EF Hepatitis panel negative Will ultimately need PFTs as she may have a component of interstitial lung disease Muscle and skin biopsy performed 10/03/23, pending. Continue Solu-Medrol 500 mg IV every 12 hours. Expect this is the last day of IV treatment and she will be changed to p.o. She appears to be significantly improving Neurology consult appreciated High-dose IV steroids requires daily lab with close monitoring of sugar and other medical parameters, increasing complexity. (2) Hypokalemia: Plan Hypertension. Resume patient's home Norvasc, but only at 5 mg daily Continue DuoNeb every 6 hours. Continue budesonide. Hypertension. Monitor blood pressures. Continue Norvasc. Full code Heparin for DVT prophylaxis May need nursing facility placement for rehabilitation. Discharge planning will see. Attestations 2 Medical Necessity Statement*: Needs continued hospital stay for IV steroids secondary to dermatomyositis/polymyositis Diagnoses Dermatomyositis M33.13 Hypokalemia E87.6 Time Spent (min) 24
[2023-10-04] MEDS: sodium chloride 0.9% 1,000 ML 100 ML IV (09:44)
[2023-10-04] MEDS: amlodipine 5 mg Tablet PO (09:44)
[2023-10-04] MEDS: heparin 5,000 unit/mL INJ 1 mL 5000 UNIT SUBCUT (09:45)
[2023-10-04] MEDS: methylPREDNISolone sod succ 125 mg/2 mL INJ 500 MG IVP (12:54)
[2023-10-04] MEDS: famotidine 20 mg/2 mL INJ IVP (12:54)
--- NOTE | 2023-10-04 14:07 | XR_ITS ---
WS: [id number] Examination: XR chest 1V portable 20206 Reason for Exam: CP Date: October 04, 2023 Comparison: October 02, 2023 Findings: The heart is not enlarged on this AP portable film. The upper mediastinum is mildly prominent but unc hanged from the previous study. There is no failure or effusion. The lung markings are mildly increased which I suspect are chronic in nature. There is no dense conso lidation. Impression: No acute lung process is identified.
[2023-10-04] MEDS: FUROsemide 10 mg/mL SDV 4mL 40 MG IVP (14:41)
[2023-10-04 17:14] LABS: ALBUMIN 3.1 g/dL (3.8-4.8); ALPHA 1 GLOBULIN 0.4 g/dL (0.2-0.3); ALPHA 2 GLOBULIN 0.8 g/dL (0.5-0.9); BETA 1 GLOBULIN 0.4 g/dL (0.4-0.6); BETA 2 GLOBULIN 0.3 g/dL (0.2-0.5); GAMMA GLOBULIN 0.8 g/dL (0.8-1.7)
[2023-10-05] VITALS (7 sets, daily range): BP systolic 149–168; BP diastolic 66–83; PULSE 82–100; RESP 16–18; TEMP 36–37; O2SAT 92–94
[2023-10-05] MEDS: heparin 5,000 unit/mL INJ 1 mL 5000 UNIT SUBCUT ×2 (00:09→11:04)
[2023-10-05] MEDS: famotidine 20 mg/2 mL INJ IVP ×2 (00:09→11:04)
[2023-10-05] MEDS: SODIUM CHLORIDE 0.9% IV (00:36)
[2023-10-05] MEDS: METHYLPREDNISOLONE SOD SUCC IV (00:36)
[2023-10-05 04:49] LABS: Basophils % 0.1 %; Eosinophils % 0.1 %; Hematocrit 35.9 % (36-47); Lymphocytes # 0.9 10^3/uL (0.8-4.8); Lymphocytes % 5.4 %; Mean Corpuscular HGB Conc 33.1 g/dL (30-55); Mean Corpuscular Hemoglobin 29.1 pg (27-33); Mean Corpuscular Volume 87.8 fl (85-98); Mean Platelet Volume 9.6 fL (7.4-10.4); Monocytes # 0.7 10^3/uL (0.2-0.9); Monocytes % 4.2 %; Neutrophils % 89.3 %; Nucleated Red Blood Cells % 0 %; Platelet Count 315 10^3/cmm (157-399); Red Blood Count 4.09 10^6/uL (3.85-5.65); Red Cell Distribution Width 13.9 % (12.1-15.1); White Blood Count 16.01 10^3/uL (3.29-11.43)
[2023-10-05 05:09] LABS: Alanine Aminotransferase 85 U/L (0-33); Alkaline Phosphatase 61 U/L (35-105); Anion Gap 15.6 (5-19); Aspartate Amino Transferase 174 U/L (0-32); Blood Urea Nitrogen 26 mg/dL (8-23); Calcium 7.7 mg/dL (8.5-10.5); Carbon Dioxide 22 mmol/L (22-29); Chloride 107 mmol/L (98-107); Creatinine Clr Calc Pharmacy 56.8716; Globulin 2.6 g/dL (1.3-4.6); Glucose 165 mg/dL (65-115); Osmolality Calculated 300 mOsm/kg (285-295); Potassium 3.6 mmol/L (3.5-5.1); Sodium 141 mmol/L (136-145); Total Bilirubin 0.5 mg/dL (0.15-1.2); Total Protein 5.6 g/dL (6.6-8.7)
[2023-10-05 05:26] LABS: Creatine Phosphokinase 3191 U/L (26-192)
[2023-10-05 06:28] LABS: Glucose Point of Care 186 mg/dL (70-110)
--- NOTE | 2023-10-05 07:29 | PC.NURSE ---
medication note On warehouse shift supervisor 10/03, before administering the scheduled 500mg IVP dose of solumedrol this nurse checked micromedex recommendations and noted the recommendations did not match the order, this nurse called to clarify with tele pharmacy that the dose was safe for administration, Pharmacist Kristel Acosta stated it was too large of a dose to be given IVP and recommended it be given diluted in NS and administered IVPB. This nurse then notified night time hospitalist Dr. Jefferson who then gave orders to change dose and follow pharmacy recommendations. After medication was verified by pharmacy, med could not be pulled from pyxis, mechanics supervisor Ashleigh had to over ride the pyxis to pull the correct dose of solumedrol and this nurse reconstituted med in 100 ml bag of NS and verified by charge nurse. Medication manually documented since it would not scan.
[2023-10-05] MEDS: ipratropium-albuterol 3 mL Neb INHALATION (08:23)
[2023-10-05] MEDS: budesonide 0.5 mg/2 mL Neb INHALATION (08:23)
[2023-10-05] MEDS: predniSONE 20 mg Tablet 80 MG PO (08:52)
[2023-10-05] MEDS: amlodipine 5 mg Tablet 10 MG PO (08:53)
[2023-10-05 09:43] LABS: SARS Covid-2 Antigen negative (Negative)
--- NOTE | 2023-10-05 10:22 | PM.DCS ---
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 She had a heliotrope rash, Gottron's papules, elevated CK, profound weakness over the last 4 months. She was found to have severe disease on evaluation. She was initiated on 1 g of Solu-Medrol daily. Muscle and skin biopsy were obtained which are pending currently. During her hospital course rash improved significantly. She became stronger, and was able to do some ADLs. Secondary to her profound weakness she worked with physical therapy, and patient requested to be transferred to rehabilitation for continued therapy. By end of hospital stay she was feeling somewhat better but still weak. She was transition to 80 mg of steroid by mouth daily. She will have follow-up with the rheumatology clinic [facility], continued follow-up with neurology clinic and her primary within the next week. She will get a CBC and CMP in 1 week. She was given opportunity to ask questions, and agreed with the plan. I suspect she also has some interstitial lung disease from her autoimmune disease and have made notes to have consideration of pulmonary function tests as an outpatient. She will also need screening for malignancy with colonoscopy, EGD, and mammogram which can be set up as an outpatient. I defer this to her primary care provider or specialist. Echocardiogram was also performed while the patient was in the hospital demonstrating preserved EF, grade 1 diastolic dysfunction. Physical Exam Narrative: General exam no distress Neck is supple Cardiovascular regular rate and rhythm Lungs a few faint expiratory wheezes Abdomen is soft Extremities no cyanosis clubbing or edema Discharge Data Studies Completed and Pending Completed Studies During Hospitalization Category Date Time Status XR chest 1V portable [id number] Routine Exams 10/02/23 10:26 Completed XR chest 1V portable [id number] Routine Exams 10/04/23 14:07 Completed CV. echo complete* [id number] Routine Ultrasound 10/02/23 11:00 Completed Pending at discharge Category Date Time Status Immunofixation Serum Routine Lab 10/02/23 13:10 Received Pathology: Surgical [PTH] Stat Pth 10/03/23 07:46 Received Laboratory Results WBC 16.01 10^3/uL (3.29-11.43) H 10/05/23 04:34 RBC 4.09 10^6/uL (3.85-5.65) 10/05/23 04:34 Hgb 11.90 g/dL (11.27-16.99) 10/05/23 04:34 Hct 35.9 % (36-47) L 10/05/23 04:34 MCV 87.8 fl (85-98) 10/05/23 04:34 MCH 29.1 pg (27-33) 10/05/23 04:34 MCHC 33.1 g/dL (30-55) 10/05/23 04:34 RDW 13.9 % (12.1-15.1) 10/05/23 04:34 Plt Count 315 10^3/cmm (157-399) 10/05/23 04:34 MPV 9.6 fL (7.4-10.4) 10/05/23 04:34 Neut % (Auto) 89.3 % 10/05/23 04:34 Lymph % (Auto) 5.4 % 10/05/23 04:34 [place] % (Auto) 4.2 % 10/05/23 04:34 Eos % (Auto) 0.1 % 10/05/23 04:34 Baso % (Auto) 0.1 % 10/05/23 04:34 Neut # (Auto) 14.30 10^3/uL (1.8-7.7) H 10/05/23 04:34 Lymph # (Auto) 0.9 10^3/uL (0.8-4.8) 10/05/23 04:34 [place] # (Auto) 0.7 10^3/uL (0.2-0.9) 10/05/23 04:34 Eos # (Auto) 0.0 10^3/uL (0.0-0.8) 10/05/23 04:34 Baso # (Auto) 0.0 10^3/uL (0.0-0.1) 10/05/23 04:34 Nucleated RBC % (auto) 0 % 10/05/23 04:34 Nucleated RBCs # 0.0 /100WBC 10/05/23 04:34 ESR 18 mm/hr (0-15) H 10/02/23 10:54 Sodium 141 mmol/L (136-145) 10/05/23 04:34 Potassium 3.6 mmol/L (3.5-5.1) 10/05/23 04:34 Chloride 107 mmol/L (98-107) 10/05/23 04:34 Carbon Dioxide 22 mmol/L (22-29) 10/05/23 04:34 Anion Gap 15.6 (5-19) 10/05/23 04:34 BUN 26 mg/dL (8-23) H 10/05/23 04:34 Creatinine 0.6 mg/dL (0.5-0.9) 10/05/23 04:34 GFR Calculation Not Reportable 10/05/23 04:34 Glucose 165 mg/dL (65-115) H 10/05/23 04:34 POC Glucose 186 mg/dL (70-110) H 10/05/23 06:24 Calculated Osmolality 300 mOsm/kg (285-295) H 10/05/23 04:34 Calcium 7.7 mg/dL (8.5-10.5) L 10/05/23 04:34 Phosphorus 3.4 mg/dL (2.5-4.5) 10/02/23 10:54 Magnesium 1.7 mg/dL (1.7-2.3) 10/03/23 05:13 Total Bilirubin 0.5 mg/dL (0.15-1.2) 10/05/23 04:34 AST 174 U/L (0-32) H 10/05/23 04:34 ALT 85 U/L (0-33) H 10/05/23 04:34 Alkaline Phosphatase 61 U/L (35-105) 10/05/23 04:34 Creatine Kinase 3191 U/L (26-192) H* 10/05/23 04:34 Troponin T 5th Gen ng/L 306 ng/L (0-10) H* 10/02/23 10:54 C-Reactive Protein 3.8 mg/L (0.0-4.9) 10/02/23 10:54 Total Protein 5.6 g/dL (6.6-8.7) L 10/05/23 04:34 Albumin 3.0 g/dL (3.5-5.2) L 10/05/23 04:34 Globulin 2.6 g/dL (1.3-4.6) 10/05/23 04:34 Gdzgx-5-Jauvuxorl 0.4 g/dL (0.2-0.3) H 10/02/23 13:10 Xuqwx-2-Mliikcppg 0.8 g/dL (0.5-0.9) 10/02/23 13:10 Hffu-8-Wlensiei 0.4 g/dL (0.4-0.6) 10/02/23 13:10 Hkqo-7-Tkskmhqc 0.3 g/dL (0.2-0.5) 10/02/23 13:10 Gamma Globulins 0.8 g/dL (0.8-1.7) 10/02/23 13:10 Abnorm Protein Band 1 Not Reportable 10/02/23 13:10 TSH 2.19 uIU/mL (0.27-4.20) 10/02/23 10:54 Urine Color Yellow (Yellow) 10/02/23 14:34 Urine Appearance Sl hazy (CLEAR) A 10/02/23 14:34 Urine pH 6.5 (5-7) 10/02/23 14:34 Ur Specific [place] 1.015 (1.005-1.030) 10/02/23 14:34 Urine Protein 1+ (Negative) H 10/02/23 14:34 Urine Glucose (UA) Norm (Normal) 10/02/23 14:34 Urine Ketones Negative (Negative) 10/02/23 14:34 Urine Blood 3+ (Negative) H 10/02/23 14:34 Urine Nitrate Negative (Negative) 10/02/23 14:34 Urine Bilirubin Neg (Negative) 10/02/23 14:34 Urine Urobilinogen Norm mg/dL (Negative) 10/02/23 14:34 Ur Leukocyte Esterase Trace (Negative) H 10/02/23 14:34 Urine RBC 5-10 /hpf (0-2) H 10/02/23 14:34 Urine WBC 5-10 /hpf (0-5) H 10/02/23 14:34 Ur Squamous Epith Cells 5-10 /hpf (0-5) H 10/02/23 14:34 Ur Transition Epith Cell 0-4 /hpf 10/02/23 14:34 Amorphous Sediment Not Reportable 10/02/23 14:34 Urine Bacteria Trace /hpf (NONE) 10/02/23 14:34 Hyaline Casts 0-4 /lpf H 10/02/23 14:34 Fine Granular Casts 0-4 /lpf H 10/02/23 14:34 Urine Mucus 2+ /hpf 10/02/23 14:34 U Abnormal Prot Band 2 Not Reportable 10/02/23 13:10 U Abnormal Prot Band 3 Not Reportable 10/02/23 13:10 Pro Electrophoresis Int See note 10/02/23 13:10 Hepatitis A IgM Ab Non-reactive (Nonreactive) 10/02/23 10:54 Hep Bs Antigen Non-reactive (Nonreactive) 10/02/23 10:54 Hep B Core IgM Ab Non-reactive (Nonreactive) 10/02/23 10:54 Hepatitis C Antibody Non-reactive (Nonreactive) 10/02/23 10:54 SARS-CoV-2 Ag (Rapid) negative (Negative) 10/05/23 09:05 Vitals Last Vital Signs Temp 98.0 F 10/05/23 07:51 Pulse 89 10/05/23 08:26 Resp 16 10/05/23 08:00 BP 159/83 10/05/23 07:51 Pulse Ox 94 10/05/23 08:00 O2 Del Method Nasal Cannula 10/05/23 08:00 O2 Flow Rate 1 10/05/23 08:00 Discharge Plan Discharge Patient Disposition: Xfer SNF Condition: Stable Prescriptions: New ipratropium-albuterol 0.5 mg-3 mg(2.5 mg base)/3 mL Solution For Nebulization 3 ml inhalation Q6H.RESP Qty: 240 0RF prednisone 20 mg Tablet 80 mg PO DAILY Qty: 60 0RF amlodipine 5 mg Tablet 10 mg PO DAILY Qty: 60 0RF budesonide 0.5 mg/2 mL Suspension For Nebulization 0.5 mg inhalation BID.RESPIRATORY Qty: 120 0RF Pepcid 20 mg tablet 20 mg PO BID Qty: 60 0RF Continued albuterol sulfate 90 mcg/actuation HFA aerosol inhaler 2 puff inhalation Q6H PRN (Reason: shortness of breath or wheezing) Qty: 8.5 1RF multivitamin Tablet 1 tab PO QAM acetaminophen 500 mg Tablet 500 mg PO Q6H PRN (Reason: Pain) Discontinued ibuprofen 200 mg Tablet 400 mg PO Q6H PRN (Reason: Pain) amlodipine 5 mg tablet See Rx Instructions .ROUTE .COMPLEX Rx Instructions: TAKE 1 TABLET BY MOUTH IN THE MORNING AND 2.5 MG (1/2 TABLET) IN THE EVENING. hydrochlorothiazide 25 mg tablet 25 mg PO DAILY Discharge Orders: Discharge Order (Routine); Ordered 10/05/23 Ordered By: Constantin Boswell Referrals: [facility] [Outside] Arvind Adams MD [Physician] - 4-7 days (We have notified your physician's clinic of the need for a follow-up appointment to be scheduled. If you have not heard from them within the next 2 business days, please call them directly. ) Km Gary MD [Physician] - 4-7 days ([facility] We have notified your physician's clinic of the need for a follow-up appointment to be scheduled. If you have not heard from them within the next 2 business days, please call them directly. ) Discharge Diet: As Directed Discharge Activity: Increase activity as tolerated Patient Instructions: Dermatomyositis (GEN), Opioid Safety Activity Restrictions/Additional Instructions: Take all medicine as prescribed Oxygen 2 L per nasal cannula, may titrate off for sat greater than or equal to 92% CBC, CMP in 1 week Do not stop prednisone without taper instructions or further instructions from neurology or rheumatology. Please arrange pulmonary function tests, mammogram, screening EGD and colonoscopy for outpatient physician, with referral to their providers of choice. Discharge Attestations Time Spent in Discharge Care*: greater than 30 min Quality Metrics Clinical Quality Measures [ No reported AMI, CVA or VTE this stay] Coding Level of Care Code 64328 Total time (in minutes) for Discharge: 40 Diagnoses Dermatomyositis M33.13 Hypokalemia E87.6
== END 2023-10-05 13:40 | disposition skilled nursing facility (03) | DRG 502 ==
PROVIDERS: Surgery; Admitting Provider Internal Medicine; PCP Family Medicine; Visit Provider Internal Medicine
PROC: 0KBR0ZX Excision of Left Upper Leg Muscle, Open Approach, Diagnostic (ICD-10-PCS; principal; 2023-10-03 07:00)
DX: M33.13 Other dermatomyositis without myopathy (principal); K21.9 Gastro-esophageal reflux disease without esophagitis; I10 Essential (primary) hypertension; E87.6 Hypokalemia; Z11.52 Encounter for screening for COVID-19
CPT/HCPCS: 36415; 36416; 71045; 80053; 80074; 81001; 82085; 82550; 82607; 82652; 82746; 82962; 83735; 84100; 84155; 84165; 84443; 84484; 85025; 85651; 86140; 86160; 86162; 86235; 86255; 86334; 86376; 86431; 87426; 88304; 88305; 93005; 93306; 94640; 95885; 95913; 96372; 97110; 97116; 97161; 97530; 99203; J0690; J1644; J1940; J2405; J2704; J2765; J2919; J3010; J3490; J7030; J7512; J7626

== ENCOUNTER → 2023-10-10 14:05 | Outpatient (BNVA) | payer MEDICARE, SELFPAY | PROVIDERS: PCP Family Medicine; Visit Provider Psychiatry & Neurology Neurology | DX: M33.13 Other dermatomyositis without myopathy (principal); G62.9 Polyneuropathy, unspecified; E87.6 Hypokalemia | CPT/HCPCS: 99212 ==

== ENCOUNTER → 2023-10-31 14:07 | Outpatient (BNVA) | payer MEDICARE, SELFPAY | PROVIDERS: PCP Family Medicine; Visit Provider Surgery | DX: M33.13 Other dermatomyositis without myopathy (principal) | CPT/HCPCS: 99024 ==

== ENCOUNTER → 2023-11-08 09:12 | Outpatient (BNVA) | payer MEDICARE, SELFPAY | PROVIDERS: PCP Family Medicine; Visit Provider Psychiatry & Neurology Neurology | DX: M33.13 Other dermatomyositis without myopathy (principal); I10 Essential (primary) hypertension; G62.9 Polyneuropathy, unspecified; E87.6 Hypokalemia | CPT/HCPCS: 36415; 82550; 84132; 84155; 84165; 84439; 84443; 84481; 86334; 99212 ==

== ENCOUNTER 2023-11-18 11:20 | Outpatient (CLI) | payer MEDICARE, SELFPAY ==
[2023-11-18 14:14] LABS: Specific Gravity, Urine 1.005 (1.005-1.030); Urine Appearance Clear (CLEAR); Urine Color Straw (Yellow); pH Urine 7 (5-7)
[2023-11-18 14:15] LABS: Add Urine Culture? Yes; Add Urine Microscopic? YES; Bacteria Urine 1+ /hpf; Bilirubin Urine Neg (Negative); Blood Urine 2+ (Negative); Glucose Urine UA Norm (Normal); Ketones Urine Negative (Negative); Leukocyte Esterase Urine 2+ (Negative); Nitrate Urine Negative (Negative); Protein Urine Neg (Negative); RBC Urine 0-4 /hpf (0-2); Squamous Epithelial Cell Urine 0-4 /hpf (0-5); Urobilinogen Urine Norm (Negative)
== END 2023-11-18 11:21 | disposition home or self-care (01) ==
PROVIDERS: PCP Family Medicine; Visit Provider Family Medicine
DX: N39.0 Urinary tract infection, site not specified (principal)
CPT/HCPCS: 81001; 87077; 87086; 87186

== ENCOUNTER → 2023-11-27 12:44 | Outpatient (BNVA) | payer MEDICARE, SELFPAY | PROVIDERS: PCP Family Medicine; Visit Provider Family Medicine | DX: M33.13 Other dermatomyositis without myopathy (principal) | CPT/HCPCS: 80053; 82550; 85025 ==

== ENCOUNTER 2023-12-04 17:04 | Outpatient (CLI) | payer MEDICARE, SELFPAY ==
[2023-12-05 08:17] LABS: Add Urine Microscopic? NO; Charge for UA Resulting for Rev
[2023-12-05 08:35] LABS: Bilirubin Urine Neg (Negative); Blood Urine Neg (Negative); Glucose Urine UA Norm (Normal); Ketones Urine Negative (Negative); Leukocyte Esterase Urine Negative (Negative); Nitrate Urine Negative (Negative); Protein Urine Neg (Negative); Specific Gravity, Urine 1.015 (1.005-1.030); Urine Appearance Clear (CLEAR); Urine Color Yellow (Yellow); Urobilinogen Urine Norm (Negative); pH Urine 7 (5-7)
== END 2023-12-04 17:05 | disposition home or self-care (01) ==
PROVIDERS: PCP Family Medicine; Visit Provider Family Medicine
DX: I10 Essential (primary) hypertension (principal); M33.92 Dermatopolymyositis, unspecified with myopathy
CPT/HCPCS: 81003

== ENCOUNTER → 2023-12-06 07:36 | Outpatient (BNVA) | payer MEDICARE, SELFPAY | PROVIDERS: PCP Family Medicine; Visit Provider Psychiatry & Neurology Neurology | DX: M33.13 Other dermatomyositis without myopathy (principal) | CPT/HCPCS: 99212 ==

== ENCOUNTER → 2024-01-09 14:40 | Outpatient (BNVA) | payer MEDICARE, SELFPAY | PROVIDERS: PCP Family Medicine; Visit Provider Psychiatry & Neurology Neurology | DX: M33.13 Other dermatomyositis without myopathy (principal); I10 Essential (primary) hypertension | CPT/HCPCS: 36415; 82550; 99212 ==

== ENCOUNTER → 2024-02-13 12:16 | Outpatient (BNVA) | payer MEDICARE, SELFPAY | PROVIDERS: PCP Family Medicine; Visit Provider Psychiatry & Neurology Neurology | DX: M33.13 Other dermatomyositis without myopathy (principal); R29.898 Other symptoms and signs involving the musculoskeletal system; H69.92 Unspecified Eustachian tube disorder, left ear; I10 Essential (primary) hypertension; S86.812A Strain of other muscle(s) and tendon(s) at lower leg level, left leg, initial encounter; X58.XXXA Exposure to other specified factors, initial encounter | CPT/HCPCS: 36415; 82550; 99212 ==

== ENCOUNTER → 2024-03-19 08:21 | Outpatient (BNVA) | payer MEDICARE, SELFPAY | PROVIDERS: PCP Family Medicine; Visit Provider Internal Medicine Rheumatology | DX: M33.13 Other dermatomyositis without myopathy (principal); Z79.899 Other long term (current) drug therapy; Z71.85 Encounter for immunization safety counseling; Z11.59 Encounter for screening for other viral diseases; Z11.1 Encounter for screening for respiratory tuberculosis | CPT/HCPCS: 36415; 80076; 82085; 82306; 82550; 82565; 82657; 85025; 85651; 86140; 86480; 86704; 86803; 87340; 99205 ==

== ENCOUNTER 2024-04-18 12:20 | Outpatient (CLI) | payer MEDICARE, SELFPAY ==
[2024-04-18 12:41] LABS: Basophils # 0.1 10^3/uL (0.0-0.1); Basophils % 1.2 %; Eosinophils # 0.1 10^3/uL (0.0-0.8); Eosinophils % 0.8 %; Lymphocytes # 0.9 10^3/uL (0.8-4.8); Lymphocytes % 8.3 %; Mean Corpuscular Hemoglobin 29.4 pg (27-33); Mean Corpuscular Volume 91.9 fl (85-98); Mean Platelet Volume 9.2 fL (7.4-10.4); Monocytes # 0.7 10^3/uL (0.2-0.9); Monocytes % 6.7 %; Neutrophils # 8.51 10^3/uL (1.8-7.7); Neutrophils % 82.5 %; Nucleated Red Blood Cells % 0 %; Platelet Count 485 10^3/cmm (157-399); Red Blood Count 4.46 10^6/uL (3.85-5.65); Red Cell Distribution Width 12.6 % (12.1-15.1)
[2024-04-18 12:53] LABS: Alanine Aminotransferase 12 U/L (0-33); Albumin Level 4.2 g/dL (3.5-5.2); Alkaline Phosphatase 70 U/L (35-105); Aspartate Amino Transferase 16 U/L (0-32); Globulin 2.7 g/dL (1.3-4.6); Total Bilirubin 0.3 mg/dL (0.15-1.2); Total Protein 6.9 g/dL (6.6-8.7)
[2024-04-18 13:08] LABS: Erythrocyte Sedimentation Rate 6 mm/hr (0-15)
== END 2024-04-18 12:21 | disposition home or self-care (01) ==
LOC: LAB 12:21
PROVIDERS: PCP Family Medicine; Visit Provider Internal Medicine Rheumatology
DX: M33.13 Other dermatomyositis without myopathy (principal); Z79.899 Other long term (current) drug therapy
CPT/HCPCS: 36415; 80076; 82565; 85025; 85651; 86140

== ENCOUNTER → 2024-05-20 10:33 | Outpatient (BNVA) | payer MEDICARE, SELFPAY | PROVIDERS: PCP Family Medicine; Visit Provider Family Medicine | DX: Z23 Encounter for immunization (principal); M33.13 Other dermatomyositis without myopathy; I10 Essential (primary) hypertension | CPT/HCPCS: 80053; 82550; 85025; 86140 ==

== ENCOUNTER → 2024-05-27 09:15 | Outpatient (BNVA) | payer MEDICARE, SELFPAY | PROVIDERS: PCP Family Medicine; Visit Provider Family Medicine | DX: M33.13 Other dermatomyositis without myopathy (principal) | CPT/HCPCS: 82550 ==

== ENCOUNTER → 2024-06-03 10:16 | Outpatient (BNVA) | payer MEDICARE, SELFPAY | PROVIDERS: PCP Family Medicine; Visit Provider Internal Medicine Rheumatology | DX: Z79.899 Other long term (current) drug therapy (principal); M33.13 Other dermatomyositis without myopathy; Z71.85 Encounter for immunization safety counseling | CPT/HCPCS: 99214 ==

== ENCOUNTER → 2024-06-12 13:05 | Outpatient (BNVA) | payer MEDICARE, SELFPAY | PROVIDERS: PCP Family Medicine; Visit Provider Family Medicine | DX: M33.13 Other dermatomyositis without myopathy (principal) | CPT/HCPCS: 82550 ==

== ENCOUNTER → 2024-07-04 09:45 | Outpatient (BNVA) | payer MEDICARE, SELFPAY | PROVIDERS: PCP Family Medicine; Visit Provider Internal Medicine Rheumatology | DX: Z79.899 Other long term (current) drug therapy (principal); M33.13 Other dermatomyositis without myopathy | CPT/HCPCS: 80076; 82565; 85025; 85651; 86140 ==

== ENCOUNTER → 2024-08-07 10:42 | Outpatient (BNVA) | payer MEDICARE, SELFPAY | PROVIDERS: Family Provider Family Medicine; PCP Family Medicine; Visit Provider Family Medicine | DX: M33.13 Other dermatomyositis without myopathy (principal) | CPT/HCPCS: 82550 ==

== ENCOUNTER → 2024-09-08 10:47 | Outpatient (BNVA) | payer MEDICARE, SELFPAY | PROVIDERS: Family Provider Family Medicine; PCP Family Medicine; Visit Provider Family Medicine | DX: M33.13 Other dermatomyositis without myopathy (principal) | CPT/HCPCS: 80053; 82550 ==

== ENCOUNTER → 2024-10-02 09:14 | Outpatient (BNVA) | payer MEDICARE, SELFPAY | PROVIDERS: Family Provider Family Medicine; PCP Family Medicine; Visit Provider Internal Medicine Rheumatology | DX: Z79.899 Other long term (current) drug therapy (principal); M33.13 Other dermatomyositis without myopathy | CPT/HCPCS: 80076; 82565; 85025; 85651; 86140 ==

== ENCOUNTER → 2024-10-21 10:04 | Outpatient (BNVA) | payer MEDICARE, SELFPAY | PROVIDERS: Family Provider Family Medicine; PCP Family Medicine; Visit Provider Internal Medicine Rheumatology | DX: M33.13 Other dermatomyositis without myopathy (principal); Z79.899 Other long term (current) drug therapy; Z71.85 Encounter for immunization safety counseling | CPT/HCPCS: 99214 ==

== ENCOUNTER → 2025-01-21 11:20 | Outpatient (BNVA) | payer MEDICARE, SELFPAY | PROVIDERS: Family Provider Family Medicine; PCP Family Medicine; Visit Provider Internal Medicine Rheumatology | DX: Z79.899 Other long term (current) drug therapy (principal) | CPT/HCPCS: 80076; 82085; 82550; 82565; 85025; 85651; 86140 ==

== ENCOUNTER → 2025-03-03 09:55 | Outpatient (BNVA) | payer MEDICARE, SELFPAY | PROVIDERS: Family Provider Family Medicine; PCP Family Medicine; Visit Provider Internal Medicine Rheumatology | DX: M33.13 Other dermatomyositis without myopathy (principal); Z79.899 Other long term (current) drug therapy; Z71.85 Encounter for immunization safety counseling | CPT/HCPCS: 99214 ==

== ENCOUNTER → 2025-05-04 10:24 | Outpatient (BNVA) | payer MEDICARE, SELFPAY | PROVIDERS: Family Provider Family Medicine; PCP Family Medicine; Visit Provider Internal Medicine Rheumatology | DX: Z79.899 Other long term (current) drug therapy (principal) | CPT/HCPCS: 80076; 82565; 85025; 85651; 86140 ==

== ENCOUNTER → 2025-05-20 10:42 | Outpatient (BNVA) | payer MEDICARE, SELFPAY | PROVIDERS: Family Provider Family Medicine; PCP Family Medicine; Visit Provider Family Medicine | DX: M33.13 Other dermatomyositis without myopathy (principal) | CPT/HCPCS: 80053; 82550 ==